=== PATIENT | male | born 1955 | race Caucasian/White ===

== ENCOUNTER → 2018-10-15 07:58 | Outpatient (CLI) | payer MEDICARE, OTHER, SELFPAY ==
[2018-10-15 08:26] LABS: Alanine Aminotransferase 27 IU/L (21-72); Albumin 4.7 g/dL (3.5-5.0); Albumin Globulin Ratio 1.7 (1.0-2.8); Alkaline Phosphatase 58 U/L (38-126); Aspartate Aminotransferase 18 IU/L (17-59); BUN Creatinine Ratio 26.7 (6-22); Bilirubin Total 0.3 mg/dL (0.2-1.3); Blood Urea Nitrogen 24 mg/dL (9-20); Carbon Dioxide 27 mmol/L (22-32); Chloride 104 mmol/L (98-107); Estimated Glomerular Filt Rate > 60.0 mL/min (>60); Globulin 2.7 g/dL (1.7-4.1); Glucose 104 mg/dL (80-110); HEMOLYSIS 20 (0-50); Potassium 4.9 mmol/L (3.4-5.1); Sodium 140 mmol/L (137-145); Total Protein 7.4 g/dL (6.3-8.2)
== END ==
PROVIDERS: Visit Provider Specialist/Technologist Athletic Trainer
DX: M12.9 Arthropathy, unspecified (principal); R70.0 Elevated erythrocyte sedimentation rate
CPT/HCPCS: 36415; 80053

== ENCOUNTER → 2018-10-17 09:19 | Outpatient (CLI) | payer MEDICARE, OTHER, SELFPAY ==
--- NOTE | 2018-10-17 | DI.MRI.S_ITS ---
PROCEDURE: MR KNEE LT WO/W CON INDICATIONS: ARTHROPATHY TECHNIQUE: Noncontrast sagittal PD fast spin echo and T2 fast spin echo with fat saturation, sagittal 3-D FLASH with fat saturation; coronal T1 spin echo and PD fast spin echo with fat saturation, and axial T1 spin echo and PD fast spin echo with fat saturation through the knee. Post-contrast axial, coronal, and sagittal T1 spin echo with fat saturation through the knee. COMPARISON: None. FINDINGS: Image quality: Excellent. Menisci: The medial and lateral menisci demonstrate normal morphology and internal signal. The meniscal root ligaments appear intact. Cruciate ligaments: The anterior and posterior cruciate ligaments appear intact. Medial structures: The medial collateral ligament appears intact. The posterior oblique ligament, semimembranosus tendon insertions, and oblique popliteal liagment, and meniscocapsular junction appear intact. Visualized portions of the pes anserinus tendons appear normal. No abnormal bursal fluid. Lateral structures: The lateral collateral ligament, long and short heads of the biceps femoris tendon appear intact. The popliteus tendon appears normal; the popliteofibular ligament appears intact. The posterosuperior and anteroinferior popliteomeniscal fascicles appear intact. The arcuate and fabellofibular ligaments appear intact, around the lateral inferior geniculate artery. Iliotibial band appears normal. Anterior structures: The quadriceps and patellar tendons appear intact. Patellar alignment is normal. No femoral trochlear dysplasia or ventral trochlear prominence. No edema in the infrapatellar fat pad. Bones and cartilage: No suspicious osseous enhancement. No bone marrow contusions or fractures. The cartilage of the medial and lateral femorotibial compartments appears only mildly diminished in thickness, but at the patellofemoral compartment there is moderate thinning especially at the apex of the trochlear groove with chondromalacia causing focal edema involving the subchondral marrow space of both the patella and trochlear groove component of the distal femur.. Joint space: There is physiologic knee joint fluid. No Ibrahim's cyst. Normal appearing synovial plicae are incidentally noted. No suspicious soft tissue enhancement. IMPRESSION: A ligamentous injury is not found, no recent trauma is suspected. There is chondromalacia with reactive edema involving the subchondral medullary space of the posterior patella and the anterior border of the femoral trochlear groove. An osteochondral loose body is not seen. Dictated by: Dick Morejon M.D. on 10/17/2018 at 13:21 Approved by: Dick Morejon M.D. on 10/17/2018 at 13:37
== END ==
PROVIDERS: PCP Family Medicine; Visit Provider Specialist/Technologist Athletic Trainer
DX: M17.12 Unilateral primary osteoarthritis, left knee (principal); M94.262 Chondromalacia, left knee
CPT/HCPCS: 73723; A9579

== ENCOUNTER → 2019-08-02 08:22 | Outpatient (CLI) | payer MEDICARE, OTHER, SELFPAY ==
--- NOTE | 2019-08-02 08:25 | DI.RAD.S_ITS ---
PROCEDURE: XR THORACIC SPINE 3V INDICATIONS: Acute exacerbation of chronic thoracic pain TECHNIQUE: 3 views of the thoracic spine were acquired. COMPARISON: None. FINDINGS: Bones: No fractures or dislocations. No suspicious bony lesions. 11 pairs of ribs are noted, and appear intact where visualized. Moderate multilevel degenerative disc disease. Soft tissues: No paravertebral stripe thickening. IMPRESSION: 1. Moderate multilevel degenerative disc disease. 2. No fracture. No acute osseous lesion. If symptoms and/or clinical suspicion for pathology persists, evaluation with MRI may be helpful for further assessment. Dictated by: Emily Valdivia MD, PhD on 08/02/2019 at 8:04 Approved by: Emily Valdivia MD, PhD on 08/02/2019 at 8:05
== END ==
PROVIDERS: PCP Family Medicine; Visit Provider Physical Medicine & Rehabilitation
DX: M47.24 Other spondylosis with radiculopathy, thoracic region (principal); M51.34 Other intervertebral disc degeneration, thoracic region; G89.29 Other chronic pain
CPT/HCPCS: 72072; 99214

== ENCOUNTER 2021-11-28 15:52 | Emergency (ER) | payer MEDICARE, OTHER, SELFPAY ==
[2021-11-28 16:08] VITALS: BP 141/87; PULSE 70; RESP 18; TEMP 36.9; O2SAT 95; BMI 32.5
--- NOTE | 2021-11-28 16:13 | ED_ITS ---
HPI - Extremity Injury (Lower) <Leyla Lewis DO - Last Filed: 11/29/21 07:23> General Chief Complaint: Extremity Injury, Lower Stated Complaint: Lt. hip pain Time Seen by Provider: 11/28/21 16:05 History of Present Illness HPI Narrative: Patient is a 66-year-old male insert hypertension who presents with right groin pain. He states that he was moving heavy furniture yesterday said his recliner and today has extreme pain in his groin. It is still nonverbal he cannot walk. He did not fall or have any other injury. He has no numbness tingling or weakness down his leg. He denies any abdominal pain nausea or vomiting. He denies any testicular swelling, painful or frequent urination Related Data Home Medications Medication Instructions Recorded Confirmed acetaminophen 500 mg tablet 1,000 mg PO DAILY PRN tab 08/02/19 09/09/19 (Tylenol Extra Strength) ibuprofen [Advil] 2 each PO BID PRN 08/02/19 09/09/19 multivitamin 1 tab PO DAILY 08/02/19 09/09/19 Previous Rx's Medication Instructions Recorded celecoxib 200 mg capsule (Celebrex) 200 mg PO DAILY #30 cap 08/02/19 diclofenac sodium 1 % topical gel 2 g TOP QID #100 gram MDD 8 gm 09/09/19 lidocaine 5 % topical ointment 1 applic TOP BID-TID PRN #35.44 09/09/19 gram MDD three applications hydrocodone 5 mg-acetaminophen 325 1 tab PO Q6H PRN #7 tab 11/28/21 mg tablet Allergies Allergy/AdvReac Type Severity Reaction Status Date / Time No Known Drug Allergies Allergy Verified 11/28/21 16:14 Review of Systems <DO Tonya Feng Last Filed: 11/29/21 07:23> Review of Systems Narrative: GENERAL: Denies chills, fatigue, malaise, fever, sweats, travel HEENT: Denies sinus pain, ear pain, sore throat, difficulty swallowing, neck pain RESPIRATORY: Denies dyspnea, cough, wheezing, hemoptysis, sputum. CARDIOVASCULAR: Denies chest pain, palpitations, orthopnea, edema GASTROINTESTINAL: Denies nausea, vomiting, abdominal pain, diarrhea, constipation, melena. : Denies dysuria, frequency, incontinence, hematuria, urinary retention, flank pain. MUSCULOSKELETAL: Denies weakness, joint pain, or bony pain SKIN: No rash, no erythema, no pruritus NEUROLOGIC: Denies weakness, dizziness, headache, numbness, change in speech, confusion PSYCHIATRIC: No concerning psychosocial issues. 12 point review of systems is negative except for those stated above and HPI Patient History <Leyla Lewis DO - Last Filed: 11/29/21 07:23> Medical History (Updated 11/28/21 @ 18:55 by Paul Chicas DO) Cervical spondylosis with radiculopathy DISH (diffuse idiopathic skeletal hyperostosis) Thoracic spondylosis with radiculopathy Social History Smoking Status: Never smoker Exam <Leyla Lewis DO - Last Filed: 11/29/21 07:23> Initial Vital Signs Initial Vital Signs: Vital Signs Temperature 98.4 F 11/28/21 16:08 Pulse Rate 70 11/28/21 16:08 Respiratory Rate 18 11/28/21 16:08 Blood Pressure 141/87 H 11/28/21 16:08 Pulse Oximetry 95 11/28/21 16:08 GENERAL: Alert 66-year-old male appears in and in no acute distress. HEENT: Head atraumatic,EOMI, pupils reactive, face symmetric, moist mucous membranes CARDIOVASCULAR: Regular rate and rhythm without murmurs, rubs or gallops. RESPIRATORY: Breath sounds equal bilaterally, no wheezes rales or rhonchi. ABDOMEN: Soft, nontender. Normoactive bowel sounds all 4 quadrants. No guarding or rebound. :Nurse Sharita reason for exam, mild swelling in right inguinal area, no significant testicular swelling EXTREMITIES: Normal range of motion, no clubbing or edema. Neurovascularly intact NEUROLOGICAL: Alert and oriented x4 SKIN: Warm, dry, no laceration, no petechiae, no rashes or lesions. <DO Tonya Vanessa Last Filed: 11/28/21 18:57> Initial Vital Signs Initial Vital Signs: Vital Signs Temperature 98.4 F 11/28/21 16:08 Pulse Rate 70 11/28/21 16:08 Respiratory Rate 18 11/28/21 16:08 Blood Pressure 141/87 H 11/28/21 16:08 Pulse Oximetry 95 11/28/21 16:08 Course <DO Tonya Feng Last Filed: 11/29/21 07:23> Orders Ordered: Discontinued Medications Hydrocodone Bitart/Acetaminophen (Hydrocodone/Acet 5/325 Prepack) 1 bottle MISC SEEINSTR ONE Stop: 11/28/21 18:52 Last Admin: 11/28/21 19:02 Dose: 1 bottle Documented by: LUCILLE Morphine Sulfate (Morphine 4 Mg/Ml Inj) 4 mg IM NOW ONE Stop: 11/28/21 16:14 Last Admin: 11/28/21 16:20 Dose: 4 mg Documented by: RAMIROOR Morphine Sulfate (Morphine 2 Mg/Ml Inj) 2 mg IV NOW ONE Stop: 11/28/21 16:47 Last Admin: 11/28/21 16:57 Dose: 2 mg Documented by: RAMIROOR Ondansetron HCl (Ondansetron 4 Mg/2 Ml Inj) 4 mg IV NOW ONE Stop: 11/28/21 18:05 Last Admin: 11/28/21 18:07 Dose: 4 mg Documented by: LUCILLE Ondansetron HCl (Ondansetron 4 Mg Odt Prepack) 1 bottle MISC SEEINSTR ONE Stop: 11/28/21 18:52 Last Admin: 11/28/21 19:02 Dose: 1 bottle Documented by: LUCILLE Vital Signs Vital signs: Vital Signs - 8 hr 11/28/21 16:08 Temperature 98.4 F Pulse Rate 70 Respiratory Rate 18 Blood Pressure 141/87 H Pulse Oximetry 95 <Paul Chicas DO - Last Filed: 11/28/21 18:57> Orders Ordered: Discontinued Medications Hydrocodone Bitart/Acetaminophen (Hydrocodone/Acet 5/325 Prepack) 1 bottle MISC SEEINSTR ONE Stop: 11/28/21 18:52 Last Admin: 11/28/21 19:02 Dose: 1 bottle Documented by: LUCILLE Morphine Sulfate (Morphine 4 Mg/Ml Inj) 4 mg IM NOW ONE Stop: 11/28/21 16:14 Last Admin: 11/28/21 16:20 Dose: 4 mg Documented by: RAMIROOR Morphine Sulfate (Morphine 2 Mg/Ml Inj) 2 mg IV NOW ONE Stop: 11/28/21 16:47 Last Admin: 11/28/21 16:57 Dose: 2 mg Documented by: LUCILLE Ondansetron HCl (Ondansetron 4 Mg/2 Ml Inj) 4 mg IV NOW ONE Stop: 11/28/21 18:05 Last Admin: 11/28/21 18:07 Dose: 4 mg Documented by: LUCILLE Ondansetron HCl (Ondansetron 4 Mg Odt Prepack) 1 bottle MISC SEEINSTR ONE Stop: 11/28/21 18:52 Last Admin: 11/28/21 19:02 Dose: 1 bottle Documented by: LUCILLE Vital Signs Vital signs: Vital Signs - 8 hr 11/28/21 16:08 Temperature 98.4 F Pulse Rate 70 Respiratory Rate 18 Blood Pressure 141/87 H Pulse Oximetry 95 MDM - Extremity Injury (Lower) <Leyla Lewis, - Last Filed: 11/29/21 07:23> Lab Data Result diagrams: 11/28/21 16:52 11/28/21 16:52 Labs: Lab Results 11/28/21 11/28/21 Range/Units 16:52 16:52 WBC 7.2 (4.5-11.0) X10^3/uL RBC 4.97 (4.5-5.9) X10^6/uL Hgb 15.2 (13.5-17.5) g/dL Hct 44.4 (41-53) % MCV 89.4 (80-100) fL MCH 30.6 (26-34) PG MCHC 34.2 (30-36) % RDW 13.2 (11.6-14.8) % Plt Count 176 (150-400) X10^3/uL Neut % (Auto) 64.0 (50-75) % Lymph % (Auto) 23.1 L (25-40) % [place] % (Auto) 9.7 (3-14) % Eos % (Auto) 1.3 L (2-4) % Baso % (Auto) 1.9 (0-2) % Neut # (Auto) 4600 (2023-6613) /uL Lymph # (Auto) 1700 (2737-2235) /uL [place] # (Auto) 700 (0-900) /uL Eos # (Auto) 100 (0-450) /uL Baso # (Auto) 100 (0-100) /uL Sodium 139 (137-145) mmol/L Potassium 3.9 (3.4-5.1) mmol/L Chloride 108 H (98-107) mmol/L Carbon Dioxide 25 (22-32) mmol/L BUN 27 H (9-20) mg/dL Creatinine 0.98 (0.66-1.25) mg/dL Estimated GFR > 60.0 (>60) mL/min BUN/Creatinine Ratio 27.6 H (6-22) Glucose 124 H (80-110) mg/dL Calcium 9.2 (8.4-10.2) mg/dL Total Bilirubin 0.4 (0.2-1.3) mg/dL AST 19 (17-59) IU/L ALT 20 (<50) IU/L Alkaline Phosphatase 59 (38-126) U/L Total Protein 6.8 (6.3-8.2) g/dL Albumin 4.3 (3.5-5.0) g/dL Globulin 2.5 (1.7-4.1) g/dL Albumin/Globulin Ratio 1.7 (1.0-2.8) MDM Narrative Medical decision making narrative: Patient having your right inguinal pain. Minimal swelling history suggestive of inguinal hernia. Patient is given morphine pain medication I have palpated it attempted to reduce. Initially patient did have some improvement however pain started to return. At that time blood work and CT. CT pending patient signed out to Dr. Juan Francisco chicas; received turned over from Dr. Lewis. CT scan of the abdomen and pelvis shows a left-sided inguinal hernia without signs of incarceration or strangulation however the patient's pain is on his right hip. He does feel somewhat better. I have a very high suspicion that his symptoms today are musculoskeletal in origin. I did discuss this with the patient. We did discuss the CT scan findings. He stated that he knew about his left-sided inguinal hernia. We discussed treatments that he could try at home for his discomfort. Discussed return precautions and follow-up instructions. He expressed understanding and agreement. <Paul Chicas, DO - Last Filed: 11/28/21 18:57> Lab Data Labs: Lab Results 11/28/21 11/28/21 Range/Units 16:52 16:52 WBC 7.2 (4.5-11.0) X10^3/uL RBC 4.97 (4.5-5.9) X10^6/uL Hgb 15.2 (13.5-17.5) g/dL Hct 44.4 (41-53) % MCV 89.4 (80-100) fL MCH 30.6 (26-34) PG MCHC 34.2 (30-36) % RDW 13.2 (11.6-14.8) % Plt Count 176 (150-400) X10^3/uL Neut % (Auto) 64.0 (50-75) % Lymph % (Auto) 23.1 L (25-40) % [place] % (Auto) 9.7 (3-14) % Eos % (Auto) 1.3 L (2-4) % Baso % (Auto) 1.9 (0-2) % Neut # (Auto) 4600 (7484-5445) /uL Lymph # (Auto) 1700 (8090-2443) /uL [place] # (Auto) 700 (0-900) /uL Eos # (Auto) 100 (0-450) /uL Baso # (Auto) 100 (0-100) /uL Sodium 139 (137-145) mmol/L Potassium 3.9 (3.4-5.1) mmol/L Chloride 108 H (98-107) mmol/L Carbon Dioxide 25 (22-32) mmol/L BUN 27 H (9-20) mg/dL Creatinine 0.98 (0.66-1.25) mg/dL Estimated GFR > 60.0 (>60) mL/min BUN/Creatinine Ratio 27.6 H (6-22) Glucose 124 H (80-110) mg/dL Calcium 9.2 (8.4-10.2) mg/dL Total Bilirubin 0.4 (0.2-1.3) mg/dL AST 19 (17-59) IU/L ALT 20 (<50) IU/L Alkaline Phosphatase 59 (38-126) U/L Total Protein 6.8 (6.3-8.2) g/dL Albumin 4.3 (3.5-5.0) g/dL Globulin 2.5 (1.7-4.1) g/dL Albumin/Globulin Ratio 1.7 (1.0-2.8) Imaging Data CT scan - abdomen/pelvis: Radiologist's Impression: [address] [address] [address] Scan Report Signed Patient: Portillo Belle MR#: [id number] : 1955 Acct:[id number] Age/Sex: 66 / M Date of Service: 11/28/21 Loc: ED Accession Number: [id number] ?? Procedure: CT abdomen pelvis w con Ordering Provider: Leyla Lewis D.O. PROCEDURE:? CT ABDOMEN PELVIS W CON ? INDICATIONS:? right groin pain probable hernia ? TECHNIQUE:? Helical axial CT of the abdomen and pelvis was obtained after intravenous contrast injection and reformatted in multiple planes.? Automated exposure control and/or adjustment of the dose parameters according to patient's size was utilized for radiation dose reduction. ? COMPARISON:? None. ? FINDINGS: ? Lower thorax: The lung bases are clear.? Heart size normal.? No hiatal hernia. ? Liver: The liver is diffusely decreased in attenuation without focal mass lesion. ? Biliary system:? No calcified cholelithiasis or pericholecystic inflammation. No intra or extrahepatic bile duct dilatation. ? Pancreas:? Unremarkable without mass or inflammation evident. ? Spleen:? Normal in size and density. ? Adrenals:? Normal morphology and density. ? Reproductive system:? Unremarkable as visualized. ? Urinary system:? Normal renal size and attenuation.? Left renal cortical cyst measures up to 4.3 cm No renal calculi, hydronephrosis, or solid mass present.? Urinary bladder unremarkable. ? Gastrointestinal system:? The bowel is unremarkable without evidence of bowel obstruction or inflammation. The stomach appears unremarkable. ? Appendix:? Normal appendix identified.? No evidence of appendicitis. ? Peritoneal spaces:? No mesenteric or retroperitoneal adenopathy.? No free air.? No free fluid.? ? Vasculature:? Aortic atherosclerotic vascular calcification noted without evidence of aneurysm. ? Abdominal wall:? Small left inguinal hernia contains fat without bowel in volvement.? No ventral hernia. ? Musculoskeletal:? Normal bone mineralization.? Degenerative disc disease and arthropathy noted in lower lumbar spine.? No acute fractures.? ? IMPRESSION: ? 1. Small left inguinal hernia contains fat without bowel involvement.? ? 2. Chronic findings include hepatic fatty infiltration, right renal cysts without hydronephrosis, degenerative disc disease ? ? ? Approved by: Rojelio Hatfield M.D. on 11/28/2021 at 17:11? MDM Narrative Medical decision making narrative: Dr chicas; received turned over from Dr. Lewis. CT scan of the abdomen and pelvis shows a left-sided inguinal hernia without signs of incarceration or strangulation however the patient's pain is on his right hip. He does feel somewhat better. I have a very high suspicion that his symptoms today are musculoskeletal in origin. I did discuss this with the patient. We did discuss the CT scan findings. He stated that he knew about his left-sided inguinal hernia. We discussed treatments that he could try at home for his discomfort. Discussed return precautions and follow-up instructions. He expressed understanding and agreement. Discharge Plan Departure Patient Disposition: Home Clinical Impression: Acute hip pain, Hernia, inguinal, left Instructions: DI for Hip Pain Activity Restrictions/Additional Instructions: The CT scan did not show any signs of acute issues around your right hip. Like we discussed I do feel that this is musculoskeletal. You can walk as tolerated. Contact your primary doctor for follow-up. Return to the emergency department for any new or worsening symptoms. Prescriptions: New hydrocodone-acetaminophen 5-325 mg tablet 1 tab PO Q6H PRN (Reason: pain) Qty: 7 0RF No Action multivitamin Tablet 1 tab PO DAILY 0RF ibuprofen 2 each PO BID PRN0RF Hold Instructions: Home Medication placed on hold at Doctor's office acetaminophen [Tylenol Extra Strength] 500 mg tablet 1,000 mg PO DAILY PRN0RF celecoxib [Celebrex] 200 mg capsule 200 mg PO DAILY Qty: 30 2RF diclofenac sodium 1 % gel 2 g TOP QID MDD 8 gm Qty: 100 5RF Rx Instructions: apply to thoaracic back lidocaine 5 % ointment 1 applic TOP BID-TID MDD three applications PRN (Reason: lumbar pain) Qty: 35.44 0RF Referrals: Omid Nguyen MD [Primary Care Provider] -
[2021-11-28] MEDS: MORPHINE 4 MG/ML INJ IM (16:20)
--- NOTE | 2021-11-28 16:46 | DI.CT.S_ITS ---
PROCEDURE: CT ABDOMEN PELVIS W CON INDICATIONS: right groin pain probable hernia TECHNIQUE: Helical axial CT of the abdomen and pelvis was obtained after intravenous contrast injection and reformatted in multiple planes. Automated exposure control and/or adjustment of the dose parameters according to patient's size was utilized for radiation dose reduction. COMPARISON: None. FINDINGS: Lower thorax: The lung bases are clear. Heart size normal. No hiatal hernia. Liver: The liver is diffusely decreased in attenuation without focal mass lesion. Biliary system: No calcified cholelithiasis or pericholecystic inflammation. No intra or extrahepatic bile duct dilatation. Pancreas: Unremarkable without mass or inflammation evident. Spleen: Normal in size and density. Adrenals: Normal morphology and density. Reproductive system: Unremarkable as visualized. Urinary system: Normal renal size and attenuation. Left renal cortical cyst measures up to 4.3 cm No renal calculi, hydronephrosis, or solid mass present. Urinary bladder unremarkable. Gastrointestinal system: The bowel is unremarkable without evidence of bowel obstruction or inflammation. The stomach appears unremarkable. Appendix: Normal appendix identified. No evidence of appendicitis. Peritoneal spaces: No mesenteric or retroperitoneal adenopathy. No free air. No free fluid. Vasculature: Aortic atherosclerotic vascular calcification noted without evidence of aneurysm. Abdominal wall: Small left inguinal hernia contains fat without bowel involvement. No ventral hernia. Musculoskeletal: Normal bone mineralization. Degenerative disc disease and arthropathy noted in lower lumbar spine. No acute fractures. IMPRESSION: 1. Small left inguinal hernia contains fat without bowel involvement. 2. Chronic findings include hepatic fatty infiltration, right renal cysts without hydronephrosis, degenerative disc disease Approved by: Rojelio Hatfield M.D. on 11/28/2021 at 17:11
[2021-11-28] MEDS: MORPHINE 2 MG/ML INJ IV (16:57)
[2021-11-28 17:00] LABS: Add Manual Diff / Slide Review NO; Basophils Absolute Auto 100 /uL (0-100); Basophils Percent Auto 1.9 % (0-2); Eosinophils Absolute Auto 100 /uL (0-450); Eosinophils Percent Auto 1.3 % (2-4); Hematocrit 44.4 % (41-53); Hemoglobin 15.2 g/dL (13.5-17.5); Lymphocytes Absolute Auto 1700 /uL (1100-4500); Lymphocytes Percent Auto 23.1 % (25-40); Mean Corpuscular HGB Conc 34.2 % (30-36); Mean Corpuscular Hemoglobin 30.6 PG (26-34); Mean Corpuscular Volume 89.4 fL (80-100); Monocytes Absolute Auto 700 /uL (0-900); Monocytes Percent Auto 9.7 % (3-14); Neutrophils Absolute Auto 4600 /uL (1500-7000); Platelet Count 176 X10^3/uL (150-400); Red Blood Cell Count 4.97 X10^6/uL (4.5-5.9); Red Cell Distribution Width 13.2 % (11.6-14.8); White Blood Cell Count 7.2 X10^3/uL (4.5-11.0)
[2021-11-28 17:11] LABS: Alanine Aminotransferase 20 IU/L (<50); Albumin 4.3 g/dL (3.5-5.0); Albumin Globulin Ratio 1.7 (1.0-2.8); Alkaline Phosphatase 59 U/L (38-126); Aspartate Aminotransferase 19 IU/L (17-59); BUN Creatinine Ratio 27.6 (6-22); Bilirubin Total 0.4 mg/dL (0.2-1.3); Blood Urea Nitrogen 27 mg/dL (9-20); Calcium 9.2 mg/dL (8.4-10.2); Carbon Dioxide 25 mmol/L (22-32); Chloride 108 mmol/L (98-107); Estimated Glomerular Filt Rate > 60.0 mL/min (>60); Globulin 2.5 g/dL (1.7-4.1); Glucose 124 mg/dL (80-110); HEMOLYSIS 16 (0-50); Potassium 3.9 mmol/L (3.4-5.1); Sodium 139 mmol/L (137-145); Total Protein 6.8 g/dL (6.3-8.2)
[2021-11-28 17:52] VITALS: PULSE 70; O2SAT 96
[2021-11-28 18:00] VITALS: BP 161/106; PULSE 70; O2SAT 95
[2021-11-28] MEDS: ONDANSETRON 4 MG/2 ML INJ IV (18:07)
[2021-11-28 18:30] VITALS: BP 176/91; PULSE 69; O2SAT 92
[2021-11-28 19:00] VITALS: BP 162/105; PULSE 74; O2SAT 91
[2021-11-28] MEDS: ONDANSETRON 4 MG ODT PREPACK 1 BOTTLE MISC (19:02)
[2021-11-28] MEDS: HYDROCODONE/ACET 5/325 PREPACK 1 BOTTLE MISC (19:02)
== END 2021-11-28 19:14 | disposition home or self-care (01) ==
PROVIDERS: Emergency Medicine; Emergency Provider Emergency Medicine; PCP Family Medicine
DX: K40.90 Unilateral inguinal hernia, without obstruction or gangrene, not specified as recurrent (principal); M25.551 Pain in right hip
CPT/HCPCS: 36415; 74177; 80053; 85025; 96372; 96374; 96375; 99284; J2270; J2405; Q9967

== ENCOUNTER 2022-01-10 09:29 | Day surgery (SDC) | payer MEDICARE, OTHER, SELFPAY ==
--- NOTE | 2022-01-10 | PATH_ITS ---
[facility] Accession Number: [id number] No. of containers..01 Tissue . 01 Material submitted: . cecum - CECUM . 02 Diagnosis: Cecum: Tubular adenoma. MRV 01/12/2022 1501 Local . 02 Electronically signed: . Ailyn Pritchard MD, Pathologist NPI- [id number] . 01 Gross description: . CECUM: Received in formalin is 1 fragment(s) of shay, soft tissue measuring 0.6 x 0.4 x 0.4 cm submitted entirely in 1 cassette(s) /ZENOBIA 01/11/2022 2244 Local . 02 Pathologist provided ICD-10: K63.5, Z86.010 . 02 CPT . 585772 Specimen Comment: A courtesy copy of this report has been sent to [phone], [phone] Specimen Comment: 2055 Performed at: 01 [facility] [address] [facility], [place], [place] [id number] MD Michael Ward MD Phone: [phone] Performed at: 02 [facility] [address] [place], [place] [id number] MD Sallie Haji MD Phone: [phone]
[2022-01-10 10:07] VITALS: BP 144/96; PULSE 78; RESP 16; TEMP 36.4; O2SAT 97; BMI 32.5
[2022-01-10 10:30] LABS: COVID19 -Nasal RAPID Negative (Negative)
[2022-01-10] MEDS: SODIUM CHLORIDE 0.9% 1,000 ML 100 ML IV (10:47)
--- NOTE | 2022-01-10 10:59 | PM.HP.1 ---
History of Present Illness History of Present Illness Date Patient Seen: 01/10/22 Time Patient Seen: 11:00 Chief complaint: SDC Narrative: Personal history of colon polyps Patient History Medical History Cervical spondylosis with radiculopathy DISH (diffuse idiopathic skeletal hyperostosis) Thoracic spondylosis with radiculopathy Family & Social History Social History: household members spouse Tobacco & Substance use: Tobacco type cigarettes Smoking Status Former smoker alcohol intake frequency a few times a month Substance Use Type marijuana Meds Home Medications and Allergies Home Medications Medication Instructions Recorded Confirmed Type acetaminophen 500 mg tablet 1,000 mg PO DAILY PRN tab 08/02/19 01/10/22 History (Tylenol Extra Strength) ibuprofen [Advil] 2 each PO BID PRN 08/02/19 01/10/22 History multivitamin 1 tab PO DAILY 08/02/19 01/10/22 History diclofenac sodium 1 % topical gel 2 g TOP QID #100 gram MDD 8 gm 09/09/19 01/10/22 Rx lidocaine 5 % topical ointment 1 applic TOP BID-TID PRN #35.44 09/09/19 01/10/22 Rx gram MDD three applications atorvastatin 10 mg tablet 10 mg PO DAILY 01/10/22 01/10/22 History Allergies Allergy/AdvReac Type Severity Reaction Status Date / Time No Known Drug Allergies Allergy Verified 01/10/22 10:02 Review of Systems Review of Systems ROS: Yes All systems reviewed with the patient and are negative except as otherwise documented Exam Vital Signs (past 8 hours): - 01/10/22 10:07 Temperature 97.5 F L Pulse Rate 78 Respiratory Rate 16 Blood Pressure 144/96 H Pulse Oximetry 97 Oxygen Delivery Method Room Air Const General: cooperative and comfortable Orientation: alert HENMT Head: normocephalic Ears: external ears normal Nose: external nose normal Face and sinus: normal facial exam Mouth: oral mucosae normal Eyes General: appearance normal, both eyes and all related structures Neck Neck: normal visual inspection Chest Chest: normal inspection of the chest Resp Effort & Inspection: normal respiratory effort Cardio Rate: regular rate GI Inspection: normal to inspection Skin General: no rashes or lesions noted and No jaundice Neuro General: patient alert and moves all extremities Cognition: normal cognition Speech: speech normal Extrem General: no pedal edema Psych Appearance: grossly normal Objective Labs Labs: Laboratory Results - last 24 hr 01/10/22 10:00 SARS-CoV-2 (PCR) Negative Assessment & Plan Assessment & Plan narrative: 66-year-old male a personal history of colon polyps here for surveillance. Colonoscopy is planned for today. Time Spent With Patient Critical Care time: I spent a total of [] minutes of critical care time on this patient's care today; this time is exclusive of procedural time.
--- NOTE | 2022-01-10 11:01 | PM.PREOP ---
Pre-operative Note COVID-19 COVID-19 status: Negative Result date/Date tested (Pos, Neg/Pending): 01/10/22 Criteria for continued procedure: Possibility delay results in more complex future surgery or treatment Interval Note History & Physical reviewed/Exam performed by Physician: Yes Changes to H&P: No ASA Class (for procedural sedation): II
--- NOTE | 2022-01-10 11:51 | PM.OP.COLON ---
Operative Date/Time/Diagnoses Date of procedure: 01/10/22 Time of procedure: 11:51 Pre-op diagnosis: Personal history of colon polyps Post-op diagnosis: same Procedure & Clinicians Study performed: Colonoscopy with hot snare polypectomy Same procedure as scheduled: Yes Indications: Personal history of colon polyps Surgeon: Paulo Verdin Procedure Notes SCOAP/Timeout: Done Procedure in detail: After the risks and benefits were explained, written and verbal informed consent was obtained. The patient was brought into the procedure room and placed into the left lateral decubitus position. Please see nurse health information technician notes for sedation details. Digital rectal examination was accomplished. The scope was introduced into the patient and advanced under direct visualization to the cecum as identified by the appendiceal orifice and ileocecal valve. The scope was slowly withdrawn to carefully examine the mucosa for any defects or lesions. Comprehensive imaging was accomplished throughout the rectum including the dentate line. The colon was decompressed, the scope was then removed from the patient who tolerated the procedure well. Adult colonoscope Bowel prep adequate Scope withdrawal time: 13 minutes Sedation minutes: 20 Complications: none Impression: Patient had extensive diverticulosis extending from the sigmoid all the way into the ascending colon. There was a sessile 8-9 mm polyp in the cecum removed with hot snare. Moderate internal hemorrhoids were noted grade 1. No additional pathology appreciated throughout. Endoscopic diagnosis 1. Diverticulosis 2. Colon polyp 3. Grade 1 hemorrhoids Post-procedure Plan for aftercare: 1. Await histopathology 2. Repeat colonoscopy 7 years. Disposition: PACU
[2022-01-10 11:55] VITALS: BP 146/87; PULSE 70; RESP 10; TEMP 36.7; O2SAT 96
[2022-01-10 12:00] VITALS: BP 121/78; PULSE 67; RESP 13; O2SAT 96
[2022-01-10 12:05] VITALS: BP 119/65; BP 122/78; PULSE 64; PULSE 66; RESP 10; RESP 13; O2SAT 97; O2SAT 98
[2022-01-10 12:15] VITALS: BP 125/81; PULSE 66; RESP 13; O2SAT 97
== END 2022-01-10 12:30 | disposition home or self-care (01) ==
PROVIDERS: PCP Internal Medicine; Referring Provider Internal Medicine Gastroenterology; Visit Provider Internal Medicine Gastroenterology
PROC: 0DJD8ZZ Inspection of Lower Intestinal Tract, Via Natural or Artificial Opening Endoscopic (ICD-10-PCS; CPT 45378; principal; 2022-01-10 11:00)
DX: Z12.11 Encounter for screening for malignant neoplasm of colon (principal); Z86.010 Personal history of colon polyps; Z20.822 Contact with and (suspected) exposure to COVID-19; K57.30 Diverticulosis of large intestine without perforation or abscess without bleeding; K64.0 First degree hemorrhoids; D12.0 Benign neoplasm of cecum
CPT/HCPCS: 45385; 87635; C9803; J2704

== ENCOUNTER → 2022-02-02 13:32 | Outpatient (CLI) | payer MEDICARE, OTHER, SELFPAY ==
--- NOTE | 2022-02-02 | DI.RAD.S_ITS ---
PROCEDURE: XR HIP W PEL IF DONE RT 2V INDICATIONS: Radiculopathy, lumbar region/Pain in right hip TECHNIQUE: AP pelvis with lateral view(s) of the right hip(s). COMPARISON: None. FINDINGS: Bones: No fractures or dislocations. Pelvic ring appears intact. No suspicious bony lesions. Mild osseous hypertrophy noted in the right hip compatible mild osteoarthritis. Soft tissues: The visualized bowel gas pattern is normal. No suspicious soft tissue calcifications. IMPRESSION: Mild right hip osteoarthritis. Dictated by: Emily Valdivia MD, PhD on 02/02/2022 at 15:38 Approved by: Emily Valdivia MD, PhD on 02/02/2022 at 15:38
--- NOTE | 2022-02-02 | DI.RAD.S_ITS ---
PROCEDURE: XR LUMBAR SPINE MIN 4V INDICATIONS: Radiculopathy, lumbar region/Pain in right hip TECHNIQUE: 5 views of the lumbar spine were acquired, including bilateral oblique views. COMPARISON: [facility], CR, XR LUMBAR SPINE WITH OBLIQUES, 08/27/2018, 15:53. FINDINGS: Bones: 5 nonrib-bearing vertebrae are present. There is normal bony alignment. No vertebral body compression fractures. No suspicious bony lesions. Mild degenerative disc changes noted throughout the lumbar spine. Mild facet arthropathy noted throughout the lumbar spine. Soft tissues: Overlying bowel gas pattern is normal. No suspicious soft tissue calcifications. Oblique images: No pars defects. IMPRESSION: 1. Multilevel degenerative disc disease. 2. Multilevel facet arthropathy. 3. No fracture. No acute osseous lesion. If symptoms and/or clinical suspicion for pathology persists, evaluation with MRI should be considered for further assessment. Dictated by: Emily Valdivia MD, PhD on 02/02/2022 at 15:45 Approved by: Emily Valdivia MD, PhD on 02/02/2022 at 15:46
== END ==
PROVIDERS: PCP Internal Medicine; Referring Provider Family Medicine; Visit Provider Family Medicine
DX: M51.16 Intervertebral disc disorders with radiculopathy, lumbar region (principal); M47.26 Other spondylosis with radiculopathy, lumbar region; M25.551 Pain in right hip; M16.11 Unilateral primary osteoarthritis, right hip
CPT/HCPCS: 72110; 73502

== ENCOUNTER → 2022-02-26 08:21 | Outpatient (CLI) | payer MEDICARE, OTHER, SELFPAY | PROVIDERS: PCP Internal Medicine; Referring Provider Internal Medicine; Visit Provider Internal Medicine | DX: M25.551 Pain in right hip (principal); Z53.20 Procedure and treatment not carried out because of patient's decision for unspecified reasons ==

== ENCOUNTER → 2022-03-06 12:23 | Outpatient (CLI) | payer MEDICARE, OTHER, SELFPAY ==
--- NOTE | 2022-03-06 12:29 | DI.MRI.S_ITS ---
PROCEDURE: MR HIP RT WO CON INDICATIONS: Pain in right hip TECHNIQUE: Noncontrast coronal T1 spin echo and STIR through the bony pelvis. Coronal and axial T2 fast spin echo with fat saturation, sagittal T1 spin echo, and oblique axial T2 fast spin echo with fat saturation through the hip. COMPARISON: [facility], CR, XR HIP W PEL IF DONE RT 2V, 02/02/2022, 13:29. FINDINGS: Image quality: Excellent. Bones and joints: There is moderate right and mild left periarticular osteophyte formation at the hip joints. There is moderate subchondral marrow edema within the right acetabulum. Bone marrow of the pelvic ring and proximal femurs demonstrates otherwise normal signal throughout. No intraosseous lesions or fractures. No avascular necrosis of the femoral heads. The visualized lower lumbar spine appears normally aligned. Small right greater than left hip joint effusions are present. Tendons and ligaments: The gluteus medius and minimus tendons appear intact, without associated muscle atrophy. There is mild T2 signal elevation at the femoral insertion site of the right gluteus minimus tendon. The nearby proximal iliotibial band also appears intact. The iliopsoas tendon appears intact, but there is a small amount of elevated T2 signal elevation within the lateral aspect of the iliopsoas musculotendinous junction at the femoral insertion site. There is a small right ileo psoas bursal fluid collection.The origin of the hamstring tendon is intact at the ischial tuberosity, as well as the associated sacrotuberous ligament. There is mild T2 signal elevation within the proximal hamstring tendon. The straight and reflected heads of the rectus femoris muscle origin appear intact, as well as the conjoint tendon. The ligamentum teres appears intact where visualized. Labrum and cartilage: Diffuse degenerative tearing of the right hip labrum is present. Cartilage surface of the femoral head appears of normal thickness. The alpha angle of the femur is within normal limits at less than 55 degrees. Soft tissues: Visualized muscles demonstrate normal bulk and internal signal. Quadratus femoris muscle demonstrates no internal edema to suggest ischiofemoral impingement. The proximal sciatic neurovascular bundle appears normal adjacent to the hamstring tendons. No free pelvic fluid. Bladder wall thickness is normal. Genitourinary structures and bowel loops appear normal where visualized. IMPRESSION: 1. Iliopsoas bursitis. 2. Right greater than left hip joint osteoarthritis with associated degenerative labral tearing. 3. Mild right ischiitis. 4. Insertional tendinitis of the right gluteus medius tendon. Dictated by: Marguerite Yun M.D. on 03/07/2022 at 8:54 Approved by: Marguerite Yun M.D. on 03/07/2022 at 9:05
== END ==
PROVIDERS: PCP Internal Medicine; Referring Provider Internal Medicine; Visit Provider Internal Medicine
DX: M16.11 Unilateral primary osteoarthritis, right hip (principal); M70.71 Other bursitis of hip, right hip; M76.01 Gluteal tendinitis, right hip; M25.551 Pain in right hip
CPT/HCPCS: 73721

== ENCOUNTER → 2022-03-08 14:40 | Outpatient (CLI) | payer MEDICARE, OTHER, SELFPAY ==
--- NOTE | 2022-03-08 14:43 | DI.US.S_ITS ---
PROCEDURE: US ABDOMEN LIMITED INDICATIONS: R lower quadrant pain/assess for femoral hernia TECHNIQUE: Real-time focused scanning was performed of the abdomen, with image documentation. COMPARISON: None. FINDINGS: Scanning is performed at the area of clinical concern within the right groin, including with Valsalva maneuver. Standing images were also performed. No findings of hernia can be seen. IMPRESSION: Negative ultrasound, without findings of a hernia at the area of clinical concern. Dictated by: Jorge Lawson M.D. on 03/08/2022 at 15:50 Approved by: Jorge Lawson M.D. on 03/08/2022 at 15:51
== END ==
PROVIDERS: PCP Internal Medicine; Referring Provider Internal Medicine; Visit Provider Internal Medicine
DX: R10.31 Right lower quadrant pain (principal)
CPT/HCPCS: 76705

== ENCOUNTER → 2022-06-21 13:43 | Outpatient (CLI) | payer MEDICARE, OTHER, SELFPAY ==
--- NOTE | 2022-06-21 | DI.US.S_ITS ---
PROCEDURE: US ABDOMEN LIMITED INDICATIONS: Right lower quadrant pain TECHNIQUE: Real-time focused scanning was performed of the abdomen, with image documentation. COMPARISON: [facility], CT, CT ABDOMEN PELVIS W CON, 11/28/2021, 17:33. [facility], US, US ABDOMEN LIMITED, 03/08/2022, 15:43. FINDINGS: No sonographic abnormality identified within the superficial soft tissues of the left upper quadrant of the abdomen corresponding to the lump identified by the patient. No right groin hernia visualized. Images obtained at rest and with Valsalva maneuver. IMPRESSION: 1. No sonographic abnormality identified within the superficial soft tissues of the left upper quadrant of the abdomen corresponding to the lump identified by the patient. 2. No right groin hernia visualized. 3. If clinical suspicion/patient's symptoms persist, other imaging modalities such as CT of the abdomen and pelvis might be helpful. Dictated by: Sacha Duncan M.D. on 06/21/2022 at 17:48 Approved by: Sacah Duncan M.D. on 06/21/2022 at 17:51
== END ==
PROVIDERS: PCP Internal Medicine; Referring Provider Internal Medicine; Visit Provider Internal Medicine
DX: R10.31 Right lower quadrant pain (principal); M79.9 Soft tissue disorder, unspecified
CPT/HCPCS: 76705

== ENCOUNTER → 2022-10-12 10:04 | Outpatient (CLI) | payer MEDICARE, OTHER, SELFPAY ==
[2022-10-12 11:16] LABS: Add Manual Diff / Slide Review NO; Basophils Absolute Auto 100 /uL (0-100); Basophils Percent Auto 1.2 % (0-2); Eosinophils Absolute Auto 100 /uL (0-450); Hematocrit 48.3 % (41-53); Hemoglobin 16.8 g/dL (13.5-17.5); Lymphocytes Absolute Auto 2300 /uL (1100-4500); Lymphocytes Percent Auto 36.7 % (25-40); Mean Corpuscular HGB Conc 34.7 % (30-36); Mean Corpuscular Hemoglobin 30.7 PG (26-34); Mean Corpuscular Volume 88.4 fL (80-100); Monocytes Absolute Auto 700 /uL (0-900); Neutrophils Absolute Auto 3100 /uL (1500-7000); Neutrophils Percent Auto 49.1 % (50-75); Platelet Count 170 X10^3/uL (150-400); Red Blood Cell Count 5.46 X10^6/uL (4.5-5.9); Red Cell Distribution Width 12.8 % (11.6-14.8); White Blood Cell Count 6.3 X10^3/uL (4.5-11.0)
[2022-10-12 11:23] LABS: Appearance Urine UA CLEAR; Bilirubin Urine UA NEGATIVE (NEGATIVE); Color Urine UA YELLOW; Glucose Urine UA NEGATIVE (Negative); Ketones Urine UA NEGATIVE (NEGATIVE); Leukocyte Esterase Urine UA NEGATIVE (NEGATIVE); Nitrite Urine UA NEGATIVE (Negative); Occult Blood Urine UA NEGATIVE (Negative); Protein Urine UA NEGATIVE (Negative); Specific Gravity Urine UA 1.025 (1.000-1.035); Urobilinogen Urine UA 0.2 E.U./dL (0.2)
[2022-10-12 11:33] LABS: Bacteria Urine None Seen; Culture Indicated Urine Cult Not Indicated; RBC Urine None Seen (0-5/HPF); Urine Comments Microscopic Normal; WBC Urine None Seen (0-5/HPF)
[2022-10-12 11:33] LABS: BUN Creatinine Ratio 29.5 (6-22); Blood Urea Nitrogen 28 mg/dL (9-20); Calcium 9.2 mg/dL (8.4-10.2); Carbon Dioxide 23 mmol/L (22-32); Chloride 104 mmol/L (98-107); Estimated Glomerular Filt Rate > 60 mL/min (>60); Glucose 109 mg/dL (80-110); HEMOLYSIS 17 (0-50); Potassium 4.4 mmol/L (3.4-5.1); Sodium 138 mmol/L (137-145)
[2022-10-12 11:35] LABS: Hemoglobin A1C% w Est Avg Glu 5.6 % (4.0-6.0)
== END ==
PROVIDERS: PCP Internal Medicine; Referring Provider Orthopaedic Surgery; Visit Provider Orthopaedic Surgery
DX: Z01.818 Encounter for other preprocedural examination (principal); R73.9 Hyperglycemia, unspecified; Z01.812 Encounter for preprocedural laboratory examination; N39.0 Urinary tract infection, site not specified
CPT/HCPCS: 36415; 80048; 81001; 83036; 85025; 93005

== ENCOUNTER 2022-11-19 12:15 | Observation (INO) | payer MEDICARE, OTHER, SELFPAY ==
[2022-11-09 08:42] VITALS: BMI 33.2
[2022-11-17] VITALS (10 sets, daily range): BP systolic 109–158; BP diastolic 61–91; PULSE 61–90; RESP 12–18; TEMP 35.3–37.2; O2SAT 97–99; BMI 33.2
--- NOTE | 2022-11-17 | DI.RAD.S_ITS ---
PROCEDURE: XR HIP W PEL IF DONE RT 2V INDICATIONS: INTRA-OP TECHNIQUE: 3 intraoperative view(s) of the hip acquired. COMPARISON: [facility], CR, XR HIP W PEL IF DONE RT 2V, 02/02/2022, 13:29. FINDINGS: Intraoperative images of the right hip arthroplasty. The prosthesis projects in the expected location. IMPRESSION: Intraoperative guidance provided. Dictated by: Saul Parra M.D. on 11/17/2022 at 16:47 Approved by: Saul Parra M.D. on 11/17/2022 at 16:47
--- NOTE | 2022-11-17 06:00 | DI.RAD.S_ITS ---
PROCEDURE: XR HIP W PEL IF DONE RT 2V INDICATIONS: prosthesis placement TECHNIQUE: AP pelvis and lateral view of the right hip acquired. COMPARISON: [facility], DELILAH, XR HIP W PEL IF DONE RT 2V, 11/17/2022, 16:36. FINDINGS: Bones: Patient is status post right hip arthroplasty, with hardware components in expected positions. The hip joint appears congruent. The visualized bony structures appear intact. Soft tissues: Overlying postoperative changes are noted. No suspicious soft tissue densities. IMPRESSION: Expected appearance post right hip arthroplasty. Dictated by: Elvia Liz M.D. on 11/17/2022 at 17:39 Approved by: Elvia Liz M.D. on 11/17/2022 at 17:40
[2022-11-17] MEDS: CELECOXIB 200 MG CAPSULE PO (12:47)
[2022-11-17] MEDS: VANCOMYCIN 1,000 MG/200 ML PIGGYBACK 200 MG IV (12:47)
[2022-11-17] MEDS: PREGABALIN 75 MG CAPSULE PO (12:47)
[2022-11-17] MEDS: ACETAMINOPHEN 325 MG TABLET 975 MG PO (12:47)
[2022-11-17 12:58] LABS: COVID19 -Nasal RAPID Negative (Negative)
--- NOTE | 2022-11-17 13:55 | P.OP_ITS ---
Operative Date/Time/Diagnoses Date of procedure: 11/17/22 Time of procedure: 14:00 Pre-op diagnosis: Severe right hip osteoarthritis Post-op diagnosis: same Procedure & Clinicians Procedure: Right total hip arthroplasty anterior approach Same procedure as scheduled: Yes Indications: The patient has had progressively worsening right hip pain with radiographic changes consistent with arthritis. Non-operative management has failed and the patient has requested total hip replacement. The risks, benefits and alternatives to surgery were discussed with the patient prior to proceeding. Risks discussed included, but were not limited to, failure to relieve pain, leg length discrepancy, dislocation, stiffness, infection, nerve damage, deep venous thrombosis, pulmonary embolism, stroke, coma, heart attack, permanent paralysis and , as well as the potential need for eventual revision of the prosthetic. Surgeon: Sadie Giles Ripsaw Operator: Timothy Banegas Anesthesia Type: General and Spinal Operative Notes Findings: Severe right hip osteoarthritis, adequate stability, good bone Closure Type: primary Specimen(s): none sent Prosthetic devices, grafts, tissues, transplants, or devices: Giles [employer]hew 56 mm R3, size 7 standard offset anthology, 36- 3 Oxinium, neutral poly liner,one 6.5 mm screw Estimated Blood Loss (mL): 250 Blood products transfused: none Procedure in detail: The patient was brought to the operating room. Patient was carefully positioned in the supine position. Time-out was performed and antibiotics were given. Anesthesia was induced. She was positioned in the on the table in order to allow hyperextension of the hip. The right lower extremity was prepped and draped in a standard sterile fashion. An anterior right hip incision was made 1 fingerbreadth lateral to the anterior superior iliac spine and extended distally towards the greater trochanter. Dissection was carried out through skin and subcutaneous tissues. Superficial hemostasis was achieved. The fascia over the tensor fascia donaldo was defined and incised with a knife. Two Allis clamps were used to grasp the fascia. Tensor fascia donaldo was retracted laterally. A gelpi retractor was placed. Dissection was carried out down along the neck. The circumflex vessels were carefully identified and cauterized with the Aqua Mantis. There was good visualization of the femoral neck. A Cobra was placed superior to the neck and the gluteus fibers were carefully stripped from that superior aspect of the capsule. A 2nd retractor was placed along the inferior aspect of the neck. The rectus insertion along the capsule was partially released. A 3rd retractor that was then gently placed over the rim of the acetabulum under the rectus. Capsule was carefully incised and released from the intertrochanteric l ine circumferentially superior to the mid sagittal line and inferiorly to the mid sagittal line until the lesser trochanter was palpable. A tag stitch was placed both in the superior and inferior limb of the capsular insertion. Along the acetabulum capsule was also released up to the mid sagittal 12:00 position. A portion of the labrum was resected. A saw was used to perform an osteotomy at the level of the intertrochanteric line and the junction of the superior femoral neck leaving approximately 1 finger breath of residual inferior neck above the lesser trochanter. A 2nd cut was made along the femoral neck at the base of the head and a napkin ring of neck was removed. Corkscrew was placed in the femoral head and the head was removed without difficulty. Retractors were then repositioned around the acetabulum. Residual labrum was resected and additional osteophytes were removed. A reamer that was 4 mm below the templated size was placed by hand in the acetabulum and it was reamed to centralize the acetabulum. It was then reamed up to 2 under the templated size and fluoroscopy was brought in to confirm the position of the reaming and depth of reaming. I reamed 1 under the anticipated size. A trial cup was placed and noted that it was appropriately sized and fluoroscopy confirmed position and depth. The component was open and inserted without difficulty fluoroscopic imaging was used to confirm that the cup had been adequately seated and was well positioned. It was further stabilized with a single screw. Neutral poly liner was placed. The cup was tested and noted to be stable. Attention was then directed to the femur. The femur was gently hyperextended additional capsular release was performed as needed in order to allow adequate visualization of the proximal femur with elevation of the femur. Patient was placed in a hyperextended slightly adducted position with maximum external rotation. Box osteotome was used to check for any residual neck as well as sclerotic bone along the trochanter. [place] pepper was placed in the femur. Additional broaching was performed. Canal finder was used to determine the alignment of the canal and position. Size 1 broach was placed. The canal was then appropriately broached up to the templated size as long as there was adequate stability of the broach and serial advancement of the broach without excessive impingement. Specific attention was directed at avoiding varus attempting to direct the distal aspect of the broach more anteriorly and avoiding excessive anteversion. Trial reduction showed acceptable range of motio n, good stability, no posterior impingement, zoroastrianism of leg length and appropriate lateral shuck. I also hyperflexed the hip and checked that there was no impingement anteriorly and there was good stability with flexion, adduction and internal rotation. Marcaine and Exparel were injected. The stem was placed without difficulty. Repeat trial reduction and x-ray showed acceptable overall position, length, and no evidence of the femoral fracture. Final head was placed. Wound was meticulously irrigated with normal saline. The hip was reduced and additional Exparel and Marcaine were injected. The capsule was closed with interrupted nonabsorbable sutures. The fascia of the tensor was closed with interrupted and running Vicryl. No drain was placed. Any tensor fascia donaldo muscle that appeared to be contused or injured which was a minimal amount was carefully resected. Capsule around the tensor was injected with Exparel and Marcaine. The skin was closed with barbed stitches for the collazo bcutaneous tissue and skin. We also used surgical glue. The wound was dressed sterilely. Brief Betadine soak was also used and was meticulously irrigated with normal saline. Patient was transferred to recovery room in satisfactory condition. Complications: none Post-operative Condition: stable Disposition: Acute Care Plan for aftercare: The patient will be maintained on a standard total hip replacement protocol with weight bearing as tolerated and anterior hip precautions. The patient will receive Aspirin and sequential compression devices for DVT prophylaxis. The patient will be discharged home when safe for the home environment.
--- NOTE | 2022-11-17 13:55 | PM.PREOP ---
Pre-operative Note COVID-19 COVID-19 status: Negative Interval Note History & Physical reviewed/Exam performed by Physician: Yes Changes to H&P: No
[2022-11-17] MEDS: CEFAZOLIN 2 GM/100 ML PREMIX 100 ML IV ×2 (14:10→21:40)
[2022-11-17] MEDS: TRANEXAMIC ACID 1,000 MG VIAL 1000 MG INJ ×2 (14:20→16:23)
--- NOTE | 2022-11-17 14:51 | SUR.OPER ---
Patient supine on padded Patterson table, left arm on padded arm board at <90, right arm padded and secured with tape across patient's chest, both legs secured in padded traction boots and positioned per surgeon, padded post at patient's groin, pressure points checked and padded, pannus taped by surgeon, all positioning finalized by surgeon and PA
[2022-11-17] MEDS: LACTATED RINGERS 1,000 ML 42 ML IV (14:55)
[2022-11-17] MEDS: BUPIVACAINE LIPOSOME 266 MG/20 ML VIAL INJ (14:58)
[2022-11-17] MEDS: BUPIVACAINE 0.5% W/ EPI (PF) 30 ML VIAL INJ (14:59)
[2022-11-17] MEDS: OXYCODONE IR 5 MG TABLET PO ×2 (17:19→21:37)
[2022-11-17] MEDS: LACTATED RINGERS 1,000 ML 125 ML IV (20:12)
[2022-11-17] MEDS: ACETAMINOPHEN 325 MG TABLET 650 MG PO (20:12)
[2022-11-17] MEDS: IBUPROFEN 400 MG TABLET PO (20:13)
[2022-11-17] MEDS: DOCUSATE 100 MG CAPSULE PO (20:25)
[2022-11-17] MEDS: MIRTAZAPINE 15 MG TABLET PO (20:25)
[2022-11-17] MEDS: ASPIRIN EC 81 MG TABLET PO (20:26)
[2022-11-17] MEDS: ATORVASTATIN 20 MG TABLET 10 MG PO (20:26)
[2022-11-18] MEDS: OXYCODONE IR 5 MG TABLET PO ×2 (01:25→08:36)
[2022-11-18] MEDS: IBUPROFEN 400 MG TABLET PO ×4 (01:27→20:22)
[2022-11-18] MEDS: ACETAMINOPHEN 325 MG TABLET 650 MG PO ×4 (01:30→20:23)
[2022-11-18 02:54] VITALS: BP 108/62; PULSE 78; RESP 14; TEMP 37.1; O2SAT 92
[2022-11-18] MEDS: CEFAZOLIN 2 GM/100 ML PREMIX 100 ML IV (05:14)
[2022-11-18] MEDS: SODIUM CHLORIDE 0.9% FLUSH 10 ML IV ×3 (05:59→20:24)
[2022-11-18 06:29] LABS: Hemoglobin 14.4 g/dL (13.5-17.5)
[2022-11-18 08:00] VITALS: BP 112/74; PULSE 64; RESP 18; TEMP 36.9; O2SAT 93
--- NOTE | 2022-11-18 08:05 | CM.DANOTE ---
Addendum entered by JAD Pinto 11/19/22 14:17: ADD: therapy initially recommending SNF, spoke with patient and spouse about this option but ultimately patient improved enough today for return home. Patient and spouse very pleased. Plan: DC home w.spouse to assist to sister's house (one level) BRIANNA Original Note: Initial DCP Assessment Note Pt is a 67 yo male, resident of [place], now POD#1 from Rt hip surgery by Dr Giles PCP: Jose Bran Payer: NEY/Arvin Reviewed chart, pt has planned for DC home with family today, awaiting therapy recommendations No barriers identified from chart review to patient's safe discharge home w/family to assist; likely close outpatient f/u recommended. CM team will plan to follow closely today for continued assessment of DC needs and coordination of plan JAD Nicole Discharge Planning/Care Management CM Discharge Assessment Start: 11/18/22 08:02 Freq: Status: Active Protocol: Document 11/18/22 08:02 BRIANNA (Rec: 11/18/22 08:05 BRIANNA [id number]) Discharge Planning Assessment Assigned Emergency Management Director JAD Rosas DPOA/Assigned Designee Name Claudia () Contact Information [phone] Advance Directives? No Advance Directives on File No History Provided By Patient,Medical Record Prior Living Arrangements House Household Members spouse Type of transporation used prior to Drives own vehicle admit Independent with ADL's Yes: Poor activity tolerance r /t pain Is patient alert and oriented? Yes Barriers to Discharge No Comment None identified from chart review, awaiting therapy recommendations Discharge Plan Home Transportation Arrangement Family Referrals Initiated None needed Additional Comment Following closely in case any DC needs or concerns arise
[2022-11-18] MEDS: DOCUSATE 100 MG CAPSULE PO ×2 (08:37→20:23)
[2022-11-18] MEDS: ASPIRIN EC 81 MG TABLET PO ×2 (08:37→20:22)
[2022-11-18] MEDS: MULTIVITAMIN 1 TABLET 1 TAB PO (08:37)
--- NOTE | 2022-11-18 10:26 | P.DS_ITS ---
History of Present Illness History of Present Illness Date Patient Seen: 11/18/22 Time Patient Seen: 10:26 Chief complaint: Status post right total hip arthroplasty, anterior Narrative: Patient is awake sitting up in bed this morning. He states his pain has been w ell-controlled. His is at bedside and they state they have 20 stairs that the patient must climb in their home. Patient is looking forward to working with physical therapy. Discharge Providers Provider Discharge Date: 11/18/22 Primary care physician: Jose Bran MD Consults: 11/17/22 06:00 Consult to Anesthesiology Routine Comment: Consulting Provider: Anesthesiologist Reason for consultation: Regional block for post operative pain control 11/17/22 17:33 Consult to Discharge Planning Routine Comment: Consult to Physical Therapy Evaluate & Treat Comment: Physician Instructions: post op ANITA protocol Discharge provider: Sallie Nettles PA-C Summary Hospital Course Discharge Diagnosis: Status post right total hip arthroplasty, anterior Hospital Course: Operative Date/Time/Diagnoses Date of procedure: 11/17/22 Time of procedure: 14:00 Pre-op diagnosis: Severe right hip osteoarthritis Post-op diagnosis: same Procedure & Clinicians Procedure: Right total hip arthroplasty anterior approach Same procedure as scheduled: Yes Indications: The patient has had progressively worsening right hip pain with radiographic changes consistent with arthritis. Non-operative management has failed and the patient has requested total hip replacement. The risks, benefits and alternatives to surgery were discussed with the patient prior to proceeding. Risks discussed included, but were not limited to, failure to relieve pain, leg length discrepancy, dislocation, stiffness, infection, nerve damage, deep venous thrombosis, pulmonary embolism, stroke, coma, heart attack, permanent paralysis and , as well as the potential need for eventual revision of the prosthetic. Surgeon: Sadie Giles [employer] Supervisor: Timothy Banegas Anesthesia Type: General and Spinal Operative Notes Findings: Severe right hip osteoarthritis, adequate stability, good bone Closure Type: primary Specimen(s): none sent Prosthetic devices, grafts, tissues, transplants, or devices: [employer] 56 mm R3, size 7 standard offset anthology, 36- 3 Oxinium, neutral poly liner,one 6.5 mm screw Estimated Blood Loss (mL): 250 Blood products transfused: none Status at Discharge Cognitive/behavioral status at discharge: oriented Functional status at discharge: uses cane/walker Overall status at discharge: patient is progressing back to baseline Exam Vital Signs (past 8 hours): - 11/18/22 02:54 11/18/22 08:00 Temperature 98.8 F 98.5 F Pulse Rate 78 64 Respiratory Rate 14 18 Blood Pressure 108/62 112/74 Pulse Oximetry 92 93 Oxygen Flow Rate 0 0 Oxygen Delivery Method Room Air Oxygen Flow Rate 0 Narrative Exam Narrative: Awake, alert, and oriented. Intraoperative bandages clean, dry, and intact. Strength and sensation are intact to lower extremities bilaterally. Bilateral calves soft, compressible, nontender with no palpable cords or masses. Objective Labs 11/18/22 05:45 Labs: Laboratory Results - last 24 hr 11/17/22 11/18/22 12:19 05:45 Hgb 14.4 Hct 43.0 SARS-CoV-2 (PCR) Negative PFSH Medical History Cervical spondylosis with radiculopathy Depression DISH (diffuse idiopathic skeletal hyperostosis) Gout Hearing impaired HLD (hyperlipidemia) Osteoarthritis Rash (10/2022) Right shoulder pain Thoracic spondylosis with radiculopathy Surgical History History of nasal surgery Hx of arthroscopy of right knee Hx of colonoscopy Social History household members: spouse Smoking Status: Former smoker alcohol intake: current Discharge Assessment & Plan Assessment and Plan Assessment: Patient progressing as expected after right total hip arthroplasty, anterior approach. His pain is being well controlled. Plan of Treatment: Patient plans to discharge to home once safe and cleared by Physical therapy. He lives at home with his and has 20 stairs to climb in the home. Intraoperative Aquacel dressing to remain clean, dry, and intact until follow-up visit with Orthopedics in 2 weeks after surgery. Patient already prescribed narcotic medication at preoperative appointment for postoperative pain. Discharge Plan Discharge Plan Patient Disposition: Home Provider Discharge Comment: Discharge home when safe and cleared by Physical therapy Discharge orders & Medications Discharge Orders: Discharge (Order); Ordered 11/18/22 Ordered By: Sallie Nettles Prescriptions: Continued atorvastatin 10 mg tablet 10 mg PO BEDTIME Label Comments: Take one tablet by mouth once daily in the evening for cholesterol mirtazapine 15 mg Tablet 15 mg PO BEDTIME multivitamin Tablet 1 tab PO DAILY acetaminophen [Tylenol Extra Strength] 500 mg tablet 1,000 mg PO DAILY PRN (Reason: Pain) Follow up/Referrals: Jose Bran MD [Primary Care Provider] - Sadie Giles MD [Physician] - As previously scheduled (Follow up w/ Dr Giles on 11/30/2022 @ 2:00 pm at [facility] office in [place].) Diet/Activity/Treatments Diet: Diet as Tolerated Activity: Weight bearing as tolerated to right hip. Anterior hip precautions. Cold/Heat Therapy: Ice to hip as needed for pain. Skin/Wound/Dressing Care Dressing: May shower. Leave Aquacel dressing in place until follow up appt. No bathing or otherwise soaking incision. Call the office if the dressing becomes saturated inside. Visit Report/Discharge Packet Instructions: DI for Hip Replacement, DI for Constipation, How to Prevent Falls Stand Alone Forms: Patient Portal/API, Stroke Signs & Symptoms, Surgery Discharge Discharge Data Primary Care Provider: Jose Bran Attending Provider: Sadie Giles Quality VTE Deep Vein Thrombosis/Pulmonary Embolism Present on Admission: No
[2022-11-18 12:00] VITALS: BP 109/69; PULSE 65; RESP 20; TEMP 36.6; O2SAT 97
--- NOTE | 2022-11-18 12:46 | PT.IIE ---
Current Diagnoses Unilateral primary osteoarthritis, right hip (11/17/22) Surgery Performed Operation Date: 11/17/22 14:00 Actual Procedures p Total Hip Arthroplasty/Anterior Approach(Right) - Sadie Giles MD Surgical History (Last Reviewed 11/18/22 @ 10:30 by Sallie Nettles PA-C) History of nasal surgery Hx of arthroscopy of right knee Hx of colonoscopy Medical History (Last Reviewed 11/18/22 @ 10:30 by Sallie Nettles PA-C) Cervical spondylosis with radiculopathy Depression DISH (diffuse idiopathic skeletal hyperostosis) Gout Hearing impaired HLD (hyperlipidemia) Osteoarthritis Rash (10/2022) Right shoulder pain Thoracic spondylosis with radiculopathy Physical Therapy Inpatient Evaluation/Re-Eval M1 PT/OT-IP Prior Functional Status Start: 11/18/22 12:20 Freq: Status: Active Protocol: Document 11/18/22 12:20 BC (Rec: 11/18/22 12:46 BC [id number]) Medical Review Prior Functional Status Medical History Reviewed Yes Diet/Fluid Consistency Regular Mobility and Gait Independent Activities of Daily Living and IADL's Independent Prior Functional Level (Other details) Works in yard Social History Household Members spouse Living Arrangements House Number of Floors (Floors) Two Floors Number of Stairs To Enter/Railing? 20 steps to access second floor. Only bedroom available is upstairs. Home Environment Standard Height Toilet,Tub/ Shower Home Equipment Front Wheel Walker,Quad Cane Employment Status Retired M2 PT-IP Current Condition Start: 11/18/22 12:20 Freq: Status: Active Protocol: Document 11/18/22 12:20 BC (Rec: 11/18/22 12:46 [id number]) Physical Therapy Current Condition Current Condition Evaluation Date 11/18/22 Treatment Diagnosis R ANITA anterior approach; difficulty with ambulation Onset Date 11/17/22 M3 PT-IP Subjective Start: 11/18/22 12:20 Freq: Status: Active Protocol: Document 11/18/22 12:20 BC (Rec: 11/18/22 12:46 [id number]) Subjective Physical Therapy Visit Type Type Initial Evaluation Visit Start Time 10:50 Visit Stop Time 11:25 Total Visit Minutes 30 Physical Therapy Visit Comments Patient Comments Pt uncertain about his ability to discharge home Patient Goals To be safe with his recovery. Therapy Pain Assessment Pain When Pain Assessed During Mobility Pain Present Pain Present Pain Reported Location Right Hip Intensity 7 Scale Used Numeric (0 - 10) Pain Behaviors Facial Grimacing,Holding Area, Moaning Pain Management Techniques Re-positioning M4 PT-IP Mobility and Gait Start: 11/18/22 12:20 Freq: Status: Active Protocol: Document 11/18/22 12:20 BC (Rec: 11/18/22 12:46 [id number]) PT-Bed Mobility Assessment Supine to Sit Supine to Sit Minimal Assistance Scooting Scooting to Edge of Bed Contact Guard Assistance PT-Transfer Assessment Sit to and From Stand Sit to and from Stand Contact Guard Assistance Equipment Transfer Assistive Device Gait Belt,Front Wheeled Walker Transfers Transfer Destination Bed,Chair Transfer Technique Stand Step Pivot Transfer Ability Level of Assist Minimal Assistance Comments Mobility Comments Pt with reduced WB tolerance on RLE due to pain resulting in need of min A for transfers . Gait Assessment Gait Gait Assistance Required: Contact Guard Assist,Minimum Assistance Distance (Feet) 15 Assistive Devices Assistive Device Gait Belt,Front Wheeled Walker Gait Deviations General Gait Pattern Antalgic,Decreased Stride Length,Flexed Trunk,Step-to Gait Factors Limiting Gait Function Factors Limiting Gait Function Decreased Activity Tolerance, Decreased Strength,Limited Range of Motion,Pain,Poor Balance Comments Gait Comments Pt only ambulate 15' before needing to sit due to increasing pain. Was 3/10 at rest and increased to 7/10 with gait. He had a significantly antalgic gait with step to pattern and minimal tolerance to any WB through RLE. Stair Climbing Assessment Comments Stair Climbing Comments Unable to safely assess this AM PT-Balance Assessment Sitting Balance and Reactions Static Sitting Balance Ability Normal Dynamic Sitting Balance Ability Normal Standing Balance and Reactions Static Standing Balance Ability Fair Dynamic Standing Balance Ability Fair Device Used FWW M5 PT-IP Objective Assessments Start: 11/18/22 12:20 Freq: Status: Active Protocol: Document 11/18/22 12:20 BC (Rec: 11/18/22 12:46 [id number]) Orientation Orientation/Cognition Level of Alertness Alert Orientation Name,Date,Year,Situation Language Function Ability No Deficits Noted Safety Awareness Understands Safety Issues Comments [place] Gross Range of Motion Upper Extremity ROM Assessment Within Functional Limits Lower Extremity ROM Assessment Right Impaired Impairments anterior THPs limitations. Ankle WFL, knee WFL. Strength Upper Extremity Strength Assessment Within Functional Limits Lower Extremity Strength Assessment Right Impaired Hip demonstrated at least 3-/5 with functional mobilizations Knee 4/5 Ankle 4/5 Coordination Assessment Gross Coordination Gross Coordination WNL Sensation Assessment Sensation Sensation Description Hyperesthesia Comments Sensation Comments Pt reports hypersensation to touch on RUE thigh anteriolateral. Muscle Tone Muscle Tone WNL Yes M6 PT-IP Treatment Start: 11/18/22 12:20 Freq: Status: Active Protocol: Document 11/18/22 12:20 BC (Rec: 11/18/22 12:46 [id number]) Physical Therapy Treatment Education Education Provided Post-Op Packet,Safety Other Treatments Other Treatment Performed Educated on anterior hip precautions. DME providers for likely need of tub bench and raised toilet seat. Standing weight shifting laterally for pre-gait training. M7 PT-IP Assessment and Plan Start: 11/18/22 12:20 Freq: Status: Active Protocol: Document 11/18/22 12:20 BC (Rec: 11/18/22 12:46 [id number]) PT Summary Assessment and Plan Potential Rehabilitation Potential Excellent Status of Condition at Evaluation Evolving Summary Impairments Pain,ROM,Strength,Balance, Coordination,Sensation,Bed Mobility,Transfers,Gait, Activity Tolerance Progress Towards Goals Slow Progress due to Pain Assessment Summary Pt admitted s/p R anterior ANITA . He is WBAT. Pt and spouse present throughout. He reports his PLOF was fully independent and enjoys walking for exercise. He has a FWW in the room with him (adjusted to his height today but suspect even 1 level higher would be better). He has 20 steps to access the only bedroom and full bath in his home. Per Pt and , the steps are narrow with only a railing on L side with ascent. Pt states the steps are slippery. He and verbalize concern about discharging home today. Pt initially stating pain was 3/ 10 at rest but as we began to mobilize pain increased to 7/ 10. BP supine 107/76, sitting 124/80, and after gait 131/80. Pt was able to ambulate only 15' with pain as primary limitation. He could not bear weight on RLE for sufficient step through gait pattern. He requires min A at this time for just basic bedside mobility. He is not demonstrating a level of mobility for discharge home yet. I discussed with nsng that pain was a big limitation . She reports he has not been taking full dose of pain medication and she will assess this with him. BID session may improve discharge recommendations but for now he would need SNF placement given the level of his mobility and home set up concerns. Goals Bed Mobility Goal Independent Transfer Goal Standby Assistance Gait Goal Standby Assistance Gait Distance 100 Other Goals - Pt will ascend/descend 20 stairs (or near equivalent) with single railing and SBA. - Pt will be independent with HEP. Days to Meet Goals 4 Frequency of Treatment Frequency Of Treatment Twice a Day Treatment Plan Physical Therapy Treatment Plan Bed Mobility Training,Transfer Training,Gait Training, Therapeutic Exercise,Balance Retraining,Post Op Education, Discharge Planning, Neuromuscular Re-ed Precautions Anterior Hip Precautions No Hip Extension,No Hip External Rotation Weight Bearing Status Weight Bearing Status Weight Bear as Tolerated Recommendations To Nursing Amount of Assist Needed 1 Person Assist Discharge Recommendations PT Discharge Recommendations Home vs SNF Equipment Needed for Home Before Reviewed with Pt/ they may Discharge want to obtain tub bench and raised commode Transportation Needs at Discharge Private Vehicle,Wheelchair/ Cabulance
[2022-11-18] MEDS: OXYCODONE IR 10 MG TABLET PO ×2 (13:17→18:53)
--- NOTE | 2022-11-18 17:50 | PT.IPTN ---
Current Diagnoses Unilateral primary osteoarthritis, right hip (11/17/22) Surgery Performed Operation Date: 11/17/22 14:00 Actual Procedures p Total Hip Arthroplasty/Anterior Approach(Right) - Sadie Giles MD Physical Therapy Treatment Note M2 PT-IP Current Condition Start: 11/18/22 12:20 Freq: Status: Active Protocol: Document 11/18/22 12:20 BC (Rec: 11/18/22 12:46 BC [id number]) Physical Therapy Current Condition Current Condition Evaluation Date 11/18/22 Treatment Diagnosis R ANITA anterior approach; difficulty with ambulation Onset Date 11/17/22 M3 PT-IP Subjective Start: 11/18/22 12:20 Freq: Status: Active Protocol: Document 11/18/22 17:30 LJ (Rec: 11/18/22 17:50 LJ [id number]) Subjective Physical Therapy Visit Type Type Treatment Note Visit Start Time 15:28 Visit Stop Time 15:57 Total Visit Minutes 29 Physical Therapy Visit Comments Patient Comments Pt uncertain about his ability to discharge home Patient Goals To be safe with his recovery. Therapy Pain Assessment Pain When Pain Assessed During Mobility Pain Present Pain Present Pain Reported Location Right Hip Intensity 7 Scale Used Numeric (0 - 10) Pain Behaviors Facial Grimacing,Holding Area, Moaning Pain Management Techniques Re-positioning M4 PT-IP Mobility and Gait Start: 11/18/22 12:20 Freq: Status: Active Protocol: Document 11/18/22 17:30 LJ (Rec: 11/18/22 17:50 LJ [id number]) PT-Bed Mobility Assessment Supine to Sit Supine to Sit Minimal Assistance Sit to Supine Sit to Supine Moderate Assistance Scooting Scooting to Edge of Bed Contact Guard Assistance Scooting Up and Down in Bed Standby Assistance PT-Transfer Assessment Sit to and From Stand Sit to and from Stand Contact Guard Assistance Equipment Transfer Assistive Device Gait Belt,Front Wheeled Walker Transfers Transfer Destination Bed Transfer Technique ambulated Transfer Ability Level of Assist Contact Guard Assistance Comments Mobility Comments Pt remains in pain with ambulation and unable to tolerate full WB on RLE. Heavy use of UEs on FWW with limited gait. Pt requires assist with LEs lift into bed Gait Assessment Gait Gait Assistance Required: Contact Guard Assist Distance (Feet) 30 Assistive Devices Assistive Device Gait Belt,Front Wheeled Walker Gait Deviations General Gait Pattern Antalgic,Decreased Stride Length,Flexed Trunk,Step-to Gait Factors Limiting Gait Function Factors Limiting Gait Function Decreased Activity Tolerance, Decreased Strength,Limited Range of Motion,Pain,Poor Balance Comments Gait Comments Pt able to increase ambulation distance in room however very slow and heavy reliance on UEs. Unable to put full weight on RLE. Last 5 feet of ambulation pt required close CGA to Kevin for balance. Pain medication taken but still endorsing high pain level with mobility. Stair Climbing Assessment Comments Stair Climbing Comments Unable to safely assess in pm treatment session M5 PT-IP Objective Assessments Start: 11/18/22 12:20 Freq: Status: Active Protocol: Document 11/18/22 12:20 BC (Rec: 11/18/22 12:46 BC [id number]) Orientation Orientation/Cognition Level of Alertness Alert Orientation Name,Date,Year,Situation Language Function Ability No Deficits Noted Safety Awareness Understands Safety Issues Comments [place] Gross Range of Motion Upper Extremity ROM Assessment Within Functional Limits Lower Extremity ROM Assessment Right Impaired Impairments anterior THPs limitations. Ankle WFL, knee WFL. Strength Upper Extremity Strength Assessment Within Functional Limits Lower Extremity Strength Assessment Right Impaired Hip demonstrated at least 3-/5 with functional mobilizations Knee 4/5 Ankle 4/5 Coordination Assessment Gross Coordination Gross Coordination WNL Sensation Assessment Sensation Sensation Description Hyperesthesia Comments Sensation Comments Pt reports hypersensation to touch on RUE thigh anteriolateral. Muscle Tone Muscle Tone WNL Yes M6 PT-IP Treatment Start: 11/18/22 12:20 Freq: Status: Active Protocol: Document 11/18/22 17:30 LJ (Rec: 11/18/22 17:50 LJ [id number]) Physical Therapy Treatment Exercises Exercises Ankle Pumps,Gluteal Sets,Quad Sets,Heel Slides Education Education Provided Precautions,Weight Bearing Status,Safety Other Treatments Other Treatment Performed Educated on anterior hip precautions. DME providers for likely need of tub bench and raised toilet seat. Standing weight shifting laterally for pre-gait training. Bed exercises-AP, GS, QS indep; Heel slides small ROM assisted M7 PT-IP Assessment and Plan Start: 11/18/22 12:20 Freq: Status: Active Protocol: Document 11/18/22 17:30 LJ (Rec: 11/18/22 17:50 LJ [id number]) PT Summary Assessment and Plan Potential Rehabilitation Potential Excellent Status of Condition at Evaluation Evolving Summary Impairments Pain,ROM,Strength,Balance, Coordination,Sensation,Bed Mobility,Transfers,Gait, Activity Tolerance Progress Towards Goals Slow Progress due to Pain Assessment Summary Spouse present throughout treatment session. Pt able to increase ambulation distance but high pain level reported. He could not bear weight on RLE for sufficient step through gait pattern. He is not demonstrating a level of mobility for discharge home yet. Educated pt in maintaining pain medication schedule to control pain level to improve mobility. Pt is not safe to DC home yet as he has not been able to progress gait, trail stairs, or manage pain. At this time pt will require SNF to improve mobility, progress ambulation, and navigate stairs to return to level of function where it would be safe to return home with spouse assist. Goals Bed Mobility Goal Independent Transfer Goal Standby Assistance Gait Goal Standby Assistance Gait Distance 100 Other Goals - Pt will ascend/descend 20 stairs (or near equivalent) with single railing and SBA. - Pt will be independent with HEP. Days to Meet Goals 4 Frequency of Treatment Frequency Of Treatment Twice a Day Treatment Plan Physical Therapy Treatment Plan Bed Mobility Training,Transfer Training,Gait Training, Therapeutic Exercise,Balance Retraining,Post Op Education, Discharge Planning, Neuromuscular Re-ed Precautions Anterior Hip Precautions No Hip Extension,No Hip External Rotation Weight Bearing Status Weight Bearing Status Weight Bear as Tolerated Recommendations To Nursing Amount of Assist Needed 1 Person Assist Discharge Recommendations PT Discharge Recommendations SNF Rehab Equipment Needed for Home Before Reviewed with Pt/ they may Discharge want to obtain tub bench and raised commode Transportation Needs at Discharge Private Vehicle,Wheelchair/ Cabulance
[2022-11-18 18:16] VITALS: BP 123/69; PULSE 68; RESP 18; TEMP 37.1; O2SAT 91
[2022-11-18 19:47] VITALS: BP 109/72; PULSE 65; RESP 16; TEMP 36.6; O2SAT 96
[2022-11-18] MEDS: MIRTAZAPINE 15 MG TABLET PO (20:22)
[2022-11-18] MEDS: ATORVASTATIN 20 MG TABLET 10 MG PO (20:22)
[2022-11-19] MEDS: IBUPROFEN 400 MG TABLET PO ×3 (01:42→13:01)
[2022-11-19] MEDS: ONDANSETRON 4 MG/2 ML INJ IV (01:42)
[2022-11-19] MEDS: ACETAMINOPHEN 325 MG TABLET 650 MG PO ×3 (01:42→13:02)
[2022-11-19] MEDS: SODIUM CHLORIDE 0.9% FLUSH 10 ML IV (01:42)
[2022-11-19] MEDS: HYDROMORPHONE 2 MG TABLET PO ×3 (01:42→10:41)
[2022-11-19 01:45] VITALS: BP 105/68; PULSE 69; RESP 18; TEMP 36.5; O2SAT 95
[2022-11-19 05:12] VITALS: BP 104/64; PULSE 65; RESP 17; TEMP 36.4; O2SAT 93
[2022-11-19 08:31] VITALS: BP 109/70; PULSE 62; RESP 16; TEMP 36.6; O2SAT 95
[2022-11-19] MEDS: ONDANSETRON 4 MG ODT PO (08:38)
[2022-11-19] MEDS: MULTIVITAMIN 1 TABLET 1 TAB PO (08:39)
[2022-11-19] MEDS: polyethylene glycoL 3350 17 GM POWD.PACK PO (08:39)
[2022-11-19] MEDS: DOCUSATE 100 MG CAPSULE PO (08:40)
[2022-11-19] MEDS: ASPIRIN EC 81 MG TABLET PO (08:40)
[2022-11-19] MEDS: OXYCODONE IR 5 MG TABLET PO (08:40)
--- NOTE | 2022-11-19 10:21 | PT.IPTN ---
Current Diagnoses Unilateral primary osteoarthritis, right hip (11/17/22) Surgery Performed Operation Date: 11/17/22 14:00 Actual Procedures p Total Hip Arthroplasty/Anterior Approach(Right) - Sadie Giles MD Physical Therapy Treatment Note M2 PT-IP Current Condition Start: 11/18/22 12:20 Freq: Status: Active Protocol: Document 11/18/22 12:20 BC (Rec: 11/18/22 12:46 BC [id number]) Physical Therapy Current Condition Current Condition Evaluation Date 11/18/22 Treatment Diagnosis R ANITA anterior approach; difficulty with ambulation Onset Date 11/17/22 M3 PT-IP Subjective Start: 11/18/22 12:20 Freq: Status: Active Protocol: Document 11/19/22 10:21 AB (Rec: 11/19/22 13:19 AB [id number]) Subjective Physical Therapy Visit Type Type Treatment Note Visit Start Time 10:21 Visit Stop Time 10:47 Total Visit Minutes 26 Number of MENTAL HEALTH NURSE Visits 0 Physical Therapy Visit Comments Patient Comments pt is agreeable to do PT Therapy Pain Assessment Pain When Pain Assessed At Rest Pain Present Pain Present Pain Reported Location Right Hip Intensity 5 Scale Used 7/10 with mobility Pain Management Techniques Apply Cold,Distraction, Modification of Treatment,Re- positioning,Timing of Activity with Medications M4 PT-IP Mobility and Gait Start: 11/18/22 12:20 Freq: Status: Active Protocol: Document 11/19/22 10:21 AB (Rec: 11/19/22 13:19 AB [id number]) PT-Bed Mobility Assessment Supine to Sit Supine to Sit Minimal Assistance,1 Person Assistance,Head of Bed Elevated PT-Transfer Assessment Sit to and From Stand Sit to and from Stand Moderate Assistance,1 Person Assistance,Use of Upper Extremities Equipment Transfer Assistive Device Gait Belt,Front Wheeled Walker Orthotic/Prosthetic Devices or Brace: No Transfers Transfer Destination Chair Transfer Technique Stand Step Pivot Transfer Ability Level of Assist Maximum Assistance,1 Person Assistance,Use of Upper Extremities Comments Mobility Comments pt completed supine to sit min A and cues. increase time needed to complete task. c/o increase knee pain. completed sit to stand mod A and max cues and ambulated only ~ 2 ft max A using FWW and needing to sit down due to increase knee pain. pt sat back on EOB. pt presents with R knee slight buckling during ambulation and cues for quads activation. pt agreed to sit on the chair. positioned chair closer to pt. completed sit to stand mod A and step transfer to chair using FWW max a and max cues. positioned pt on the chair. call light and table placed within reach. Gait Assessment Gait Gait Assistance Required: Maximum Assistance Distance (Feet) 2 Able to Maintain Weight Bearing Status Yes During Gait Assistive Devices Assistive Device Gait Belt,Front Wheeled Walker Orthotic/Prosthetic Devices or Brace: No Gait Deviations General Gait Pattern Antalgic,Decreased Stride Length,Decreased Feet Clearance,Step-to Gait Factors Limiting Gait Function Factors Limiting Gait Function Decreased Activity Tolerance, Decreased Strength,Difficulty Following Directions,Limited Range of Motion,Pain,Poor Balance,Poor Safety Awareness M5 PT-IP Objective Assessments Start: 11/18/22 12:20 Freq: Status: Active Protocol: Document 11/18/22 12:20 BC (Rec: 11/18/22 12:46 BC [id number]) Orientation Orientation/Cognition Level of Alertness Alert Orientation Name,Date,Year,Situation Language Function Ability No Deficits Noted Safety Awareness Understands Safety Issues Comments [id number] Gross Range of Motion Upper Extremity ROM Assessment Within Functional Limits Lower Extremity ROM Assessment Right Impaired Impairments anterior THPs limitations. Ankle WFL, knee WFL. Strength Upper Extremity Strength Assessment Within Functional Limits Lower Extremity Strength Assessment Right Impaired Hip demonstrated at least 3-/5 with functional mobilizations Knee 4/5 Ankle 4/5 Coordination Assessment Gross Coordination Gross Coordination WNL Sensation Assessment Sensation Sensation Description Hyperesthesia Comments Sensation Comments Pt reports hypersensation to touch on RUE thigh anteriolateral. Muscle Tone Muscle Tone WNL Yes M6 PT-IP Treatment Start: 11/18/22 12:20 Freq: Status: Active Protocol: Document 11/19/22 10:21 AB (Rec: 11/19/22 13:19 AB [id number]) Physical Therapy Treatment Education Education Provided Safety M7 PT-IP Assessment and Plan Start: 11/18/22 12:20 Freq: Status: Active Protocol: Document 11/19/22 10:21 AB (Rec: 11/19/22 13:19 AB [id number]) PT Summary Assessment and Plan Potential Rehabilitation Potential Good Summary Impairments Pain,ROM,Strength,Balance, Coordination,Sensation,Bed Mobility,Transfers,Gait, Activity Tolerance Progress Towards Goals Slow Progress due to Pain,Slow Progress due to Activity Tolerance Assessment Summary pt requiring mod to max A with transfers using FWW and unable to tolerate much activity due to c/o increase hip pain and only ambulated ~ 2ft this morning. pt needs to be able to mobilize better and tolerate ambulation to be able to safety go home. Pt has 20 steps to get to his bedroom level and at this time is not safe to do any stair climbing. pt will require SNF rehab to improve overall strength and mobility. case manager specialist informed. Goals Bed Mobility Goal Independent Transfer Goal Standby Assistance,Front Wheeled Walker Gait Goal Standby Assistance Gait Distance 100 Other Goals - Pt will ascend/descend 20 stairs (or near equivalent) with L railing + SPC SBA. - Pt will be independent with HEP. Days to Meet Goals 10 Frequency of Treatment Frequency Of Treatment Twice a Day Treatment Plan Physical Therapy Treatment Plan Bed Mobility Training,Transfer Training,Gait Training, Therapeutic Exercise,Balance Retraining,Post Op Education, Discharge Planning,Hot or Cold Pack,Neuromuscular Re-ed, Coordination Retraining,Manual Therapy Precautions Anterior Hip Precautions No Hip Extension,No Hip External Rotation Weight Bearing Status Weight Bearing Status Weight Bear as Tolerated Allowed Weight Bearing Amount (enter % RLE WBAT or #) (%) Recommendations To Nursing Amount of Assist Needed 1 Person Assist Discharge Recommendations PT Discharge Recommendations SNF Rehab Transportation Needs at Discharge Wheelchair/Cabulance
--- NOTE | 2022-11-19 11:15 | P.PN_ITS ---
Subjective Subjective Date Patient Seen: 11/19/22 Time Patient Seen: 11:15 Interval history: Postop day 2 total hip arthroplasty. Stayed overnight as was evaluated by Physical therapy and felt to require jail placement. Had some initial issues with pain control. progressing towards better control now. Still has quite a bit of pain when he moves around. Does fine at rest. Exam Vital Signs (past 8 hours): - 11/19/22 05:12 11/19/22 08:31 Temperature 97.5 F L 97.9 F Pulse Rate 65 62 Respiratory Rate 17 16 Blood Pressure 104/64 109/70 Pulse Oximetry 93 95 Oxygen Flow Rate 0 0 Oxygen Delivery Method Room Air Oxygen Flow Rate 0 Narrative Exam Narrative: Alert oriented male in no acute distress. Spouse at bedside. Lying in bed. Dressing is clean dry and intact. Demonstrates dorsiflexion plantar flexion bilateral ankles. Heart rate regular rhythm. Lungs are clear. Objective Labs 11/18/22 05:45 PFSH Medical History Cervical spondylosis with radiculopathy Depression DISH (diffuse idiopathic skeletal hyperostosis) Gout Hearing impaired HLD (hyperlipidemia) Osteoarthritis Rash (10/2022) Right shoulder pain Thoracic spondylosis with radiculopathy Surgical History History of nasal surgery Hx of arthroscopy of right knee Hx of colonoscopy Social History household members: spouse Smoking Status: Former smoker alcohol intake: current Assessment & Plan Post-op Postoperative Procedures: Procedures Operation Date: 11/17/22 14:00 Actual Procedure Side Surgeon p Total Hip Arthroplasty/Anterior Approach Right Sadie Giles MD Postoperative day: 2 Postoperative status narrative: Better today. Initial marginal pain control little better now. Still pain with mobilization and difficulty mobilizing. Has 20 steps to go up at home which is a significant challenge. Will likely require jail placement initially until he can mobilize better. Discussed patient with rehabilitation caseworker. Postoperative plan narrative: Continue physical therapy, continue routine postoperative care. Await jail placement. Time Spent With Patient Time with patient: less than 15 minutes Quality VTE Deep Vein Thrombosis/Pulmonary Embolism Present on Admission: No
[2022-11-19] MEDS: OXYCODONE IR 10 MG TABLET PO (13:02)
--- NOTE | 2022-11-19 14:39 | PT.IPTN ---
Current Diagnoses Unilateral primary osteoarthritis, right hip (11/17/22) Surgery Performed Operation Date: 11/17/22 14:00 Actual Procedures p Total Hip Arthroplasty/Anterior Approach(Right) - Sadie Giles MD Physical Therapy Treatment Note M2 PT-IP Current Condition Start: 11/18/22 12:20 Freq: Status: Active Protocol: Document 11/18/22 12:20 BC (Rec: 11/18/22 12:46 BC [id number]) Physical Therapy Current Condition Current Condition Evaluation Date 11/18/22 Treatment Diagnosis R ANITA anterior approach; difficulty with ambulation Onset Date 11/17/22 M3 PT-IP Subjective Start: 11/18/22 12:20 Freq: Status: Active Protocol: Document 11/19/22 14:11 LJ (Rec: 11/19/22 14:38 LJ [id number]) Subjective Physical Therapy Visit Type Type Treatment Note Visit Start Time 13:31 Visit Stop Time 14:02 Total Visit Minutes 31 Number of CARETAKER GROUNDS Visits 1 Physical Therapy Visit Comments Patient Comments pt is agreeable to do PT. in room for CGT Patient Goals go home Therapy Pain Assessment Pain When Pain Assessed At Rest Pain Present Pain Present Pain Reported Location Right Hip Intensity 3 Scale Used 3/10 Pain Management Techniques Apply Cold,Distraction, Modification of Treatment,Re- positioning,Timing of Activity with Medications M4 PT-IP Mobility and Gait Start: 11/18/22 12:20 Freq: Status: Active Protocol: Document 11/19/22 14:11 LJ (Rec: 11/19/22 14:38 LJ [id number]) PT-Transfer Assessment Sit to and From Stand Sit to and from Stand Contact Guard Assistance,1 Person Assistance,Use of Upper Extremities Equipment Transfer Assistive Device Gait Belt,Front Wheeled Walker Orthotic/Prosthetic Devices or Brace: No Transfers Transfer Destination Chair,Toilet Transfer Technique ambulated Transfer Ability Level of Assist Contact Guard Assistance,Use of Upper Extremities Comments Mobility Comments Pt sitting in chair upon arrival. States pain is much less today and he would like to get up and walk. Pts participating in CGT states she is nervous about him going to a SNF. Would prefer to DC to sister's home which does not have any stairs and is more appropriate for his limited mobility. Pt transfered from chair to standing CGA. Pt wanted to assess whether or not he would be able to sit>stand from toilet. Ambulated with assisting ~10' and sat on down using grab bars to complete sit<>stand. Pt had no difficulty. Pt then ambulated in hallway and back to room CGA and cues for normalizing gait. Pt returned to sitting in chair. Left wih in room. Gait Assessment Gait Gait Assistance Required: Contact Guard Assist Distance (Feet) 150 Able to Maintain Weight Bearing Status Yes During Gait Assistive Devices Assistive Device Gait Belt,Front Wheeled Walker Orthotic/Prosthetic Devices or Brace: No Gait Deviations General Gait Pattern Antalgic,Decreased Stride Length,Decreased Feet Clearance,Step-to Gait Factors Limiting Gait Function Factors Limiting Gait Function Decreased Activity Tolerance, Decreased Sensation,Decreased Strength,Limited Range of Motion,Pain,Poor Balance Comments Gait Comments Pt much improved with ambulation this afrternoon. Able to ambulate to stairs and back with CGA assist. Cues given from therapist for increasing WB on RLE and working toward normalizing gait pattern. Stair Climbing Assessment Evaluation Level of Assist On Stairs Contact Guard Assistance Devices Stair Climbing Assistive Devices Left Railing,Right Railing Technique/Endurance Stair Climbing Direction Ascend and Descend Stair Climbing Technique Step to Step Number of Steps Climbed 3 Stair Climbing Set # Repetitions (reps) 1 Comments Stair Climbing Comments Pt able to complete stairs with cues for leading with stronger LE ascending and involved LE descending. M5 PT-IP Objective Assessments Start: 11/18/22 12:20 Freq: Status: Active Protocol: Document 11/18/22 12:20 BC (Rec: 11/18/22 12:46 BC [id number]) Orientation Orientation/Cognition Level of Alertness Alert Orientation Name,Date,Year,Situation Language Function Ability No Deficits Noted Safety Awareness Understands Safety Issues Comments [place] Gross Range of Motion Upper Extremity ROM Assessment Within Functional Limits Lower Extremity ROM Assessment Right Impaired Impairments anterior THPs limitations. Ankle WFL, knee WFL. Strength Upper Extremity Strength Assessment Within Functional Limits Lower Extremity Strength Assessment Right Impaired Hip demonstrated at least 3-/5 with functional mobilizations Knee 4/5 Ankle 4/5 Coordination Assessment Gross Coordination Gross Coordination WNL Sensation Assessment Sensation Sensation Description Hyperesthesia Comments Sensation Comments Pt reports hypersensation to touch on RUE thigh anteriolateral. Muscle Tone Muscle Tone WNL Yes M6 PT-IP Treatment Start: 11/18/22 12:20 Freq: Status: Active Protocol: Document 11/19/22 14:38 JESSY (Rec: 11/19/22 14:39 LJ [id number]) Physical Therapy Treatment Exercises Exercises Ankle Pumps,Gluteal Sets,Quad Sets Education Education Provided Safety M7 PT-IP Assessment and Plan Start: 11/18/22 12:20 Freq: Status: Active Protocol: Document 11/19/22 14:11 JESSY (Rec: 11/19/22 14:38 JESSY [id number]) PT Summary Assessment and Plan Potential Rehabilitation Potential Good Summary Impairments Pain,ROM,Strength,Balance, Coordination,Sensation,Bed Mobility,Transfers,Gait, Activity Tolerance Progress Towards Goals Goals Met Assessment Summary Pt improved with mobility and ambulation. Reports that he is able to DC to and stay at his [id number]'s house for a while. There are no stairs to enter and it is a single level home with taller toilet and walk in shower. completed CGT with pt and is more confident about his ability to be safe at [facility] [place]. Pt has met goals and is safe for DC. Goals Bed Mobility Goal Independent Transfer Goal Standby Assistance,Front Wheeled Walker Gait Goal Standby Assistance Gait Distance 100 Days to Meet Goals 10 Frequency of Treatment Frequency Of Treatment Twice a Day Treatment Plan Physical Therapy Treatment Plan Bed Mobility Training,Transfer Training,Gait Training, Therapeutic Exercise,Balance Retraining,Post Op Education, Discharge Planning,Hot or Cold Pack,Neuromuscular Re-ed, Coordination Retraining,Manual Therapy
== END 2022-11-19 14:56 | disposition home or self-care (01) ==
LOC: OR 19:41 → AC 19:41
PROVIDERS: Admitting Provider Orthopaedic Surgery; PCP Internal Medicine; Referring Provider Orthopaedic Surgery; Visit Provider Orthopaedic Surgery
PROC: (CPT 27130; principal; 2022-11-17 14:00)
DX: M16.11 Unilateral primary osteoarthritis, right hip (principal); Z20.822 Contact with and (suspected) exposure to COVID-19
CPT/HCPCS: 27130; 36415; 73502; 76000; 85014; 85018; 87635; 97110; 97116; 97161; 97530; C1776; C9803; G0378; C9290; J0690; J1100; J2250; J2405; J2704; J3010

== ENCOUNTER → 2023-05-01 13:32 | Outpatient (CLI) | payer MEDICARE, OTHER, SELFPAY ==
[2022-11-17 17:34] VITALS: BMI 33.2
--- NOTE | 2023-05-01 | DI.MRI.S_ITS ---
PROCEDURE: MR SHOULDER RT WO CON INDICATIONS: RIGHT SHOULDER PAIN TECHNIQUE: Noncontrast oblique coronal T2 fast spin echo with fat saturation, oblique sagittal T1 spin echo and T2 fast spin echo with fat saturation, axial T1 spin echo and T2 fast spin echo with fat saturation through the shoulder. COMPARISON: None. FINDINGS: Image quality: Excellent. Rotator cuff: Low-grade bursal surface partial thickness tear involving distal supraspinatus at its insertion on the humeral head extending to musculotendinous junction. Distal infraspinatus and subscapularis tendinosis is seen. No full-thickness rotator cuff tendon rupture. Sagittal images demonstrate very mild supraspinatus muscle atrophy. Bones and bursae: No bone marrow contusions or fractures. Moderate acromioclavicular joint osteoarthritic changes are seen with joint space narrowing and downward osteophyte formation depressing the musculotendinous junction of supraspinatus. Small amount of subacromial subdeltoid bursal fluid is seen, no gross loose bodies. Capsule and soft tissues: Subtle signal abnormality and contour irregularity involving superior anterior labrum at 1-2 o'clock position is seen suggestive of subtle superior anterior labral tear. The long head of the biceps tendon demonstrates normal location and morphology. The rotator interval appears normal, without fibrosis. The coracohumeral ligament is normal in thickness. IMPRESSION: 1. Low-grade bursal surface partial thickness tear involving distal supraspinatus near musculotendinous junction. Distal infraspinatus and subscapularis tendinosis. No full-thickness rotator cuff tendon rupture. Very mild supraspinatus muscle atrophy. 2. Moderate acromioclavicular joint osteoarthritis. No fracture or dislocation. Small amount of subacromial subdeltoid bursal fluid. 3. Suggestion of superior anterior labral tear at 1 to 2 o'clock position. Dictated by: Adilson Larose M.D. on 05/01/2023 at 21:58 Approved by: Adilson Larose M.D. on 05/01/2023 at 22:09
== END ==
PROVIDERS: PCP Internal Medicine; Referring Provider Orthopaedic Surgery; Visit Provider Orthopaedic Surgery
DX: M75.111 Incomplete rotator cuff tear or rupture of right shoulder, not specified as traumatic (principal); M19.011 Primary osteoarthritis, right shoulder
CPT/HCPCS: 73221

== ENCOUNTER → 2023-12-27 14:13 | Outpatient (CLI) | payer MEDICARE, OTHER, SELFPAY ==
[2022-11-17 17:34] VITALS: BMI 33.2
[2023-12-27 15:08] LABS: Influenza A - CEPHEID Flu A NEGATIVE (NEGATIVE); Influenza B - CEPHEID Flu B NEGATIVE (NEGATIVE); Respiratory Syncytial Virus Negative (Negative)
[2023-12-27 15:16] LABS: COVID-19 CEPHEID 4-PLEX PCR Negative (Negative)
== END ==
PROVIDERS: PCP Internal Medicine; Visit Provider Physician Assistant Medical
DX: R05.1 Acute cough (principal)
CPT/HCPCS: 0241U

== ENCOUNTER 2025-04-25 05:23 | Emergency (ER) | payer MEDICARE, OTHER, SELFPAY ==
[2022-11-17 17:34] VITALS: BMI 33.2
[2025-04-25] VITALS (8 sets, daily range): BP systolic 97–141; BP diastolic 64–77; PULSE 49–59; RESP 14–17; TEMP 36.8; O2SAT 96–98; BMI 31.8
--- NOTE | 2025-04-25 05:33 | ED.ABDPAIN ---
HPI - Abdominal Pain <Destin Harrington DO - Last Filed: 04/25/25 06:20> General Chief Complaint: Abdominal Pain Stated Complaint: rt side abd pain Time Seen by Provider: 04/25/25 05:32 History of Present Illness HPI narrative: Patient with a past medical history of hyperlipidemia essential tremors comes into the ED from home for evaluation of right lower quadrant abdominal pain, states it has been ongoing persistent for the past few days, states that movement does make it worse, states that last night he had laid on his right side felt like it was worse therefore decided come into the ED for further evaluation treatment. Patient denies any other symptoms at this time. Related Data Home Medications ?Medication ?Instructions ?Recorded ?Confirmed acetaminophen 500 mg tablet 1,000 mg PO DAILY PRN Pain 08/02/19 05/10/24 (Tylenol Extra Strength) multivitamin 1 tab PO DAILY 08/02/19 05/10/24 atorvastatin 10 mg tablet 10 mg PO BEDTIME 01/10/22 05/10/24 mirtazapine 15 mg tablet 15 mg PO BEDTIME 11/09/22 05/10/24 allopurinol 300 mg tablet 300 mg PO DAILY 05/10/24 05/10/24 lorazepam 0.5 mg tablet mg PO 05/10/24 05/10/24 primidone 50 mg tablet 100 mg PO BID 05/10/24 05/10/24 Previous Rx's ?Medication ?Instructions ?Recorded aspirin 81 mg tablet,delayed 81 mg PO BID #60 tabs 11/19/22 release cyclobenzaprine 10 mg tablet 10 mg PO TID #30 tabs 05/10/24 Allergies Allergy/AdvReac Type Severity Reaction Status Date / Time No Known Drug Allergies Allergy Verified 04/25/25 05:41 Review of Systems <Destin Harrington DO - Last Filed: 04/25/25 06:20> Review of Systems Narrative: General: Denies fever, chills, weight loss HEENT: Denies headache, eye drainage, eye irritation, head trauma, sore throat, voice change Cardiovascular: Denies any chest pain, palpitations, tachycardia Respiratory: Denies any shortness of breath, cough, wheeze, stridor GI/: Prior to the positive right lower quadrant abdominal pain, denies nausea, vomiting, diarrhea, bright red blood per rectum, melanotic stools, urinary frequency, urinary retention, dysuria, hematuria MSK: Denies any joint pain, muscle pains, swelling Skin: Denies any rashes, lesions, discoloration Neuro: Denies any headache, lightheadedness, dizziness, fainting, weakness Psych: Denies SI/HI Patient History <Destin Harrington - Last Filed: 04/25/25 06:20> Medical History Cervical spondylosis with radiculopathy Depression DISH (diffuse idiopathic skeletal hyperostosis) Gout Hearing impaired HLD (hyperlipidemia) Osteoarthritis Rash (10/2022) Right shoulder pain Thoracic spondylosis with radiculopathy Surgical History History of nasal surgery Hx of arthroscopy of right knee Hx of colonoscopy Social History household members: spouse Smoking Status: Never smoker alcohol intake: current alcohol intake frequency: a few times a week Exam <Destin Harrington, - Last Filed: 04/25/25 06:20> Narrative Exam Narrative: General: Cooperative, well-developed, not in acute distress HEENT: Normocephalic, atraumatic, PERRLA, normal sclera, eyelids normal Neck: Active full range of motion, atraumatic Chest: Normal to inspection, negative crepitus, no overlying erythema ecchymosis Respiratory: Normal respiratory effort, not in acute respiratory distress, clear to auscultation bilaterally negative cough, wheeze, tachypnea, rhonchi, rales Cardiology: Regular rate rhythm negative gallop, murmur, rubs GI/: Minor reproducible tenderness to palpation of the right lower quadrant abdomen, soft, non rigid, normal to inspection, exam deferred MSK: Full active range of motion in all 4 extremities, atraumatic, no tenderness to palpation of any bony prominences Skin: No rashes or lesions noted Neuro: Alert awake oriented x3, moves all 4 extremities spontaneously, cranial nerves intact, able to answer all questions appropriately follows commands appropriately Psych: Cooperative, negative suicidal or homicidal ideations Initial Vital Signs Initial Vital Signs: Vital Signs Pulse Rate 59 L 04/25/25 05:32 Blood Pressure 141/77 H 04/25/25 05:32 Pulse Oximetry 97 04/25/25 05:32 <Junior Umana MD - Last Filed: 04/25/25 07:30> Initial Vital Signs Initial Vital Signs: Vital Signs Pulse Rate 59 L 04/25/25 05:32 Blood Pressure 141/77 H 04/25/25 05:32 Pulse Oximetry 97 04/25/25 05:32 Course <Destin Harrington DO - Last Filed: 04/25/25 06:20> Orders Ordered: ED Orders 04/25/25 05:34 CT abdomen pelvis w con Stat 04/25/25 05:38 Complete Blood Count AUTO DIFF Stat Comprehensive Metabolic Panel Stat Lipase Stat MAG [Magnesium] Stat Discontinued Medications Sodium Chloride (Normal Saline 0.9%) 1,000 mls @ 1,000 mls/hr IV BOLUS ONE Stop: 04/25/25 06:32 Last Infusion: 04/25/25 06:39 Dose: Infused Documented By: Admin: 04/25/25 05:38 Dose: 1,000 mls/hr Documented By: KANDICE Ketorolac Tromethamine (Ketorolac 30 Mg/Ml Vial) 30 mg IV NOW ONE Stop: 04/25/25 05:34 Last Admin: 04/25/25 05:39 Dose: 30 mg Documented By: KANDICE Vital Signs Vital signs: Vital Signs - 8 hr 04/25/25 05:32 04/25/25 05:32 04/25/25 05:41 Temperature 98.3 F Pulse Rate 59 L 57 L Respiratory Rate 17 Blood Pressure 141/77 H 141/71 H Pulse Oximetry 97 97 Oxygen Delivery Method Room Air 04/25/25 06:00 04/25/25 06:00 Temperature Pulse Rate 49 L Respiratory Rate 14 Blood Pressure 119/70 Pulse Oximetry 96 Oxygen Delivery Method Room Air <Junior Umana MD - Last Filed: 04/25/25 07:30> Orders Ordered: ED Orders 04/25/25 05:34 CT abdomen pelvis w con Stat 04/25/25 05:38 Complete Blood Count AUTO DIFF Stat Comprehensive Metabolic Panel Stat Lipase Stat MAG [Magnesium] Stat Discontinued Medications Sodium Chloride (Normal Saline 0.9%) 1,000 mls @ 1,000 mls/hr IV BOLUS ONE Stop: 04/25/25 06:32 Last Infusion: 04/25/25 06:39 Dose: Infused Documented By: Admin: 04/25/25 05:38 Dose: 1,000 mls/hr Documented By: LM Ketorolac Tromethamine (Ketorolac 30 Mg/Ml Vial) 30 mg IV NOW ONE Stop: 04/25/25 05:34 Last Admin: 04/25/25 05:39 Dose: 30 mg Documented By: LM Vital Signs Vital signs: Vital Signs - 8 hr 04/25/25 05:32 04/25/25 05:32 04/25/25 05:41 Temperature 98.3 F Pulse Rate 59 L 57 L Respiratory Rate 17 Blood Pressure 141/77 H 141/71 H Pulse Oximetry 97 97 Oxygen Delivery Method Room Air 04/25/25 06:00 04/25/25 06:00 Temperature Pulse Rate 49 L Respiratory Rate 14 Blood Pressure 119/70 Pulse Oximetry 96 Oxygen Delivery Method Room Air MDM - Abdominal Pain <Destin Harrington DO - Last Filed: 04/25/25 06:20> Differential Diagnosis Differential diagnosis: Likely abdominal pain, acute appendicitis, constipation, diverticulitis, gastroenteritis, pancreatitis and other (Urinary tract infection, electrolyte abnormality) Lab Data 04/25/25 05:38 04/25/25 05:38 Labs: Lab Results 04/25/25 Range/Units 05:38 WBC 4.9 (4.5-11.0) X10^3/uL RBC 5.01 (4.5-5.9) X10^6/uL Hgb 15.5 (13.5-17.5) g/dL Hct 45.1 (41-53) % MCV 89.9 (80-100) fL MCH 31.0 (26-34) PG MCHC 34.5 (30-36) % RDW 13.0 (11.6-14.8) % Plt Count 134 L (150-400) X10^3/uL Neut % (Auto) 52.2 (50-75) % Lymph % (Auto) 33.7 (25-40) % [place] % (Auto) 11.5 (3-14) % Eos % (Auto) 1.8 L (2-4) % Baso % (Auto) 0.8 (0-2) % Neut # (Auto) 2600 (1688-6911) /uL Lymph # (Auto) 1600 (2258-0473) /uL [place] # (Auto) 600 (0-900) /uL Eos # (Auto) 100 (0-450) /uL Baso # (Auto) 0 (0-100) /uL Sodium 139 (137-145) mmol/L Potassium 4.4 (3.4-5.1) mmol/L Chloride 107 (98-107) mmol/L Carbon Dioxide 25 (22-32) mmol/L BUN 24 H (9-20) mg/dL Creatinine 0.94 (0.66-1.25) mg/dL Estimated GFR > 60 (>60) mL/min BUN/Creatinine Ratio 25.5 H (6-22) Glucose 109 H (70-99) mg/dL Calcium 9.1 (8.4-10.2) mg/dL Magnesium 2.2 (1.6-2.3) mg/dL Total Bilirubin 0.8 (0.2-1.3) mg/dL AST 24 (17-59) IU/L ALT 23 (<50) IU/L Alkaline Phosphatase 52 (38-126) U/L Total Protein 7.4 (6.3-8.2) g/dL Albumin 4.6 (3.5-5.0) g/dL Globulin 2.8 (1.7-4.1) g/dL Albumin/Globulin Ratio 1.6 (1.0-2.8) Lipase 34 (23-300) U/L Point of care testing: Urine Dip Bedside Urine Glucose Negative Bedside Urine Bilirubin - Negative Bedside Urine Ketone - Negative Urine Specific [place] 1.030 Bedside Urine Occult Blood - Negative Bedside Urine pH 6.0 Bedside Urine Protein - Negative Bedside Urine Urobilinogen - Negative Bedside Urine Nitrite - Negative Bedside Urine Leukocytes - Negative Esterase MDM Narrative Medical decision making narrative: 70-year-old male with a past medical history of hyperlipidemia essential tremors, comes into the ED from home for evaluation of right lower quadrant abdominal pain ongoing persistent for the past few days, states that movement/pressure does make it worse, nothing making it better. He denies any other symptoms such as headache visual disturbances chest pain shortness of breath fever chills nausea vomiting or any other GI/ symptoms at this time. On exam patient with minor reproducible tenderness palpation of the right lower quadrant but non peritoneal nature. Patient had lab work imaging urinalysis performed here in the emergency department. Lab work not consistent with a leukocytosis, Chem panel unremarkable, creatinine GFR normal, urinalysis not consistent with acute urinary tract infection. 0615: Patient re-evaluated stating pain to his right lower quadrant is completely resolved after administration of Toradol. Informed him of need for CT scan he understands and agrees with the plan. 0700: Patient was signed out to Dr. Umana, final disposition pending CT scan re-evaluation <Junior Umana MD - Last Filed: 04/25/25 07:30> Lab Data Labs: Lab Results 04/25/25 Range/Units 05:38 WBC 4.9 (4.5-11.0) X10^3/uL RBC 5.01 (4.5-5.9) X10^6/uL Hgb 15.5 (13.5-17.5) g/dL Hct 45.1 (41-53) % MCV 89.9 (80-100) fL MCH 31.0 (26-34) PG MCHC 34.5 (30-36) % RDW 13.0 (11.6-14.8) % Plt Count 134 L (150-400) X10^3/uL Neut % (Auto) 52.2 (50-75) % Lymph % (Auto) 33.7 (25-40) % [place] % (Auto) 11.5 (3-14) % Eos % (Auto) 1.8 L (2-4) % Baso % (Auto) 0.8 (0-2) % Neut # (Auto) 2600 (2423-8607) /uL Lymph # (Auto) 1600 (2516-2945) /uL [place] # (Auto) 600 (0-900) /uL Eos # (Auto) 100 (0-450) /uL Baso # (Auto) 0 (0-100) /uL Sodium 139 (137-145) mmol/L Potassium 4.4 (3.4-5.1) mmol/L Chloride 107 (98-107) mmol/L Carbon Dioxide 25 (22-32) mmol/L BUN 24 H (9-20) mg/dL Creatinine 0.94 (0.66-1.25) mg/dL Estimated GFR > 60 (>60) mL/min BUN/Creatinine Ratio 25.5 H (6-22) Glucose 109 H (70-99) mg/dL Calcium 9.1 (8.4-10.2) mg/dL Magnesium 2.2 (1.6-2.3) mg/dL Total Bilirubin 0.8 (0.2-1.3) mg/dL AST 24 (17-59) IU/L ALT 23 (<50) IU/L Alkaline Phosphatase 52 (38-126) U/L Total Protein 7.4 (6.3-8.2) g/dL Albumin 4.6 (3.5-5.0) g/dL Globulin 2.8 (1.7-4.1) g/dL Albumin/Globulin Ratio 1.6 (1.0-2.8) Lipase 34 (23-300) U/L Point of care testing: Urine Dip Bedside Urine Glucose Negative Bedside Urine Bilirubin - Negative Bedside Urine Ketone - Negative Urine Specific [place] 1.030 Bedside Urine Occult Blood - Negative Bedside Urine pH 6.0 Bedside Urine Protein - Negative Bedside Urine Urobilinogen - Negative Bedside Urine Nitrite - Negative Bedside Urine Leukocytes - Negative Esterase MDM Narrative Medical decision making narrative: 70-year-old male with a past medical history of hyperlipidemia essential tremors, comes into the ED from home for evaluation of right lower quadrant abdominal pain ongoing persistent for the past few days, states that movement/pressure does make it worse, nothing making it better. He denies any other symptoms such as headache visual disturbances chest pain shortness of breath fever chills nausea vomiting or any other GI/ symptoms at this time. On exam patient with minor reproducible tenderness palpation of the right lower quadrant but non peritoneal nature. Patient had lab work imaging urinalysis performed here in the emergency department. Lab work not consistent with a leukocytosis, Chem panel unremarkable, creatinine GFR normal, urinalysis not consistent with acute urinary tract infection. 0615: Patient re-evaluated stating pain to his right lower quadrant is completely resolved after administration of Toradol. Informed him of need for CT scan he understands and agrees with the plan. 0700: Patient was signed out to Dr. Umana, final disposition pending CT scan re-evaluation CHRISTEL: I assumed care of this patient at 7:00 a.m. today. At that point his laboratory evaluation was complete and the results of his abdominal pelvic CT scan where the only thing pending. Shortly after I assumed his care the results came back and showed that he had some hepatic steatosis but otherwise there was no acute findings on the CT. His pain was well controlled in the ER and he was discharged home in stable condition. Advised to return for changing or worsening abdominal pain, fevers, intractable nausea or vomiting or diarrhea or any other change or worsening in his condition. Patient was in agreement with this plan. Discharge Plan Departure Patient Disposition: Home Clinical Impression: Abdominal pain Qualifiers: Abdominal location: right lower quadrant Qualified Code(s): R10.31 - Right lower quadrant pain Instructions: DI for Abdominal Pain-Adult Prescriptions: No Action primidone 50 mg tablet 100 mg PO BID lorazepam 0.5 mg tablet PO allopurinol 300 mg tablet 300 mg PO DAILY cyclobenzaprine 10 mg tablet 10 mg PO TID Qty: 30 0RF atorvastatin 10 mg tablet 10 mg PO BEDTIME Patient Comments: Take one tablet by mouth once daily in the evening for cholesterol mirtazapine 15 mg Tablet 15 mg PO BEDTIME aspirin 81 mg Tablet,Delayed Release (Dr/Ec) 81 mg PO BID Qty: 60 0RF multivitamin Tablet 1 tab PO DAILY acetaminophen [Tylenol Extra Strength] 500 mg tablet 1,000 mg PO DAILY PRN (Reason: Pain) Referrals: Jose Bran MD [Primary Care Provider, Internal Medicine] - As soon as possible Stand Alone Forms: Patient Portal/API
--- NOTE | 2025-04-25 05:34 | DI.CT.S_ITS ---
PROCEDURE: CT ABDOMEN PELVIS W CON INDICATIONS: RLQ abd pain TECHNIQUE: After the administration of intravenous contrast, axial sections acquired from the lung bases to the pubic symphysis. Coronal and sagittal reformats were performed. For radiation dose reduction, the following was used: automated exposure control, adjustment of mA and/or kV according to patient size. COMPARISON: [facility], CT, CT ABDOMEN PELVIS W CON, 11/28/2021, 17:33. FINDINGS: Image quality: Diagnostic. Lower Chest: Bibasilar dependent atelectasis is seen. Heart size is normal, no pericardial effusion. Small hiatal hernia. ABDOMEN: Liver: No solid mass. Moderate hepatic steatosis is seen. Gallbladder: No radiopaque gallstones or wall thickening. Biliary ducts: No biliary dilation. Pancreas: No ductal dilation. Spleen: Size is within normal limits. Adrenal Glands: No adrenal nodules. Thickening of the left adrenal gland. Kidneys and Ureters: No hydronephrosis. Simple appearing bilateral renal cysts are seen. No solid mass. No complex renal cystic lesion which requires follow up. Stomach and Bowel: Normal colonic caliber, without significant wall thickening. Appendix is visualized and is within normal limits. Mild colonic diverticulosis without CT evidence of acute diverticulitis. No abscess collection. Peritoneum: No abnormal intraperitoneal fluid. No free air. Ventral Wall: No significant ventral hernia. Abdominal Nodes: No retroperitoneal or mesenteric adenopathy by size criteria. Vessels: Aorta and inferior vena cava are normal in size. PELVIS: Pelvic Organs: Unremarkable. Bladder: No bladder wall thickening, accounting for underdistention. Pelvic Nodes: No enlarged lymph nodes. Miscellaneous: No inguinal hernias are seen. Bones: No aggressive osseous abnormality. Patient is status post right total hip arthroplasty. No acute vertebral body compression fractures. IMPRESSION: 1. No bowel obstruction or abnormal bowel wall thickening. Normal appendix. Colonic diverticulosis without CT evidence of acute diverticulitis. No free fluid or free air. 2. No obstructing renal stones or hydronephrosis. Simple appearing bilateral renal cysts. 3. Moderate hepatic steatosis. No discrete hepatic lesion. No discrepancies from preliminary reading. Dictated by: Adilson Larose M.D. on 04/25/2025 at 7:56 Approved by: Adilson Larose M.D. on 04/25/2025 at 7:59
[2025-04-25] MEDS: SODIUM CHLORIDE 0.9% 1,000 ML 1000 ML IV (05:38)
[2025-04-25] MEDS: KETOROLAC 30 MG/ML VIAL IV (05:39)
[2025-04-25 05:49] LABS: Add Manual Diff / Slide Review NO; Hematocrit 45.1 % (41-53); Hemoglobin 15.5 g/dL (13.5-17.5); Lymphocytes Absolute Auto 1600 /uL (1100-4500); Mean Corpuscular HGB Conc 34.5 % (30-36); Mean Corpuscular Hemoglobin 31.0 PG (26-34); Mean Corpuscular Volume 89.9 fL (80-100); Platelet Count 134 X10^3/uL (150-400)
[2025-04-25 06:01] LABS: Alanine Aminotransferase 23 IU/L (<50); Albumin 4.6 g/dL (3.5-5.0); Albumin Globulin Ratio 1.6 (1.0-2.8); Alkaline Phosphatase 52 U/L (38-126); Blood Urea Nitrogen 24 mg/dL (9-20); Calcium 9.1 mg/dL (8.4-10.2); Carbon Dioxide 25 mmol/L (22-32); Chloride 107 mmol/L (98-107); Estimated Glomerular Filt Rate > 60 mL/min (>60); Globulin 2.8 g/dL (1.7-4.1); Glucose 109 mg/dL (70-99); HEMOLYSIS < 15 (0-50); Lipase 34 U/L (23-300); Magnesium 2.2 mg/dL (1.6-2.3); Potassium 4.4 mmol/L (3.4-5.1); Sodium 139 mmol/L (137-145); Total Protein 7.4 g/dL (6.3-8.2)
--- NOTE | 2025-04-25 06:29 | PC.NURSE ---
Pt to imaging via ED stretcher with lead technologist in cytogenetics
== END 2025-04-25 08:07 | disposition home or self-care (01) ==
PROVIDERS: Student in an Organized Health Care Education/Training Program; Emergency Provider Emergency Medicine; Family Provider Internal Medicine; PCP Internal Medicine
DX: R10.31 Right lower quadrant pain (principal)
CPT/HCPCS: 36415; 74177; 80053; 81003; 83690; 83735; 85025; 96361; 96374; 99284; J1885; Q9967

== ENCOUNTER 2025-08-05 14:15 | Emergency (ER) | payer MEDICARE, OTHER, SELFPAY ==
[2022-11-17 17:34] VITALS: BMI 33.2
[2025-08-05] VITALS (11 sets, daily range): BP systolic 121–161; BP diastolic 76–100; PULSE 57–68; RESP 17–18; TEMP 36.9; O2SAT 93–98; BMI 32.5
--- NOTE | 2025-08-05 14:24 | DI.RAD.S_ITS ---
PROCEDURE: XR ANKLE RT MIN 3V INDICATIONS: fall, 5-6 feet, pain TECHNIQUE: 3 views of the ankle were acquired. COMPARISON: 12/28/2022. FINDINGS: Bones: No acute fractures or dislocations. Productive bony changes noted at the distal fibular tip. Ankle mortise is normally aligned. No suspicious bony lesions. Soft tissues: No tibiotalar joint effusion. Achilles tendon appears normal. Mild soft tissue swelling. IMPRESSION: No acute bony abnormality or significant effusion. Mild soft tissue swelling. Dictated by: Zaira Guadarrama M.D. on 08/05/2025 at 15:18 Approved by: Zaira Guadarrama M.D. on 08/05/2025 at 15:20
--- NOTE | 2025-08-05 14:24 | DI.RAD.S_ITS ---
PROCEDURE: XR HIP W PEL IF DONE RT 2V INDICATIONS: fall, 5-6 feet, pain TECHNIQUE: AP pelvis and lateral view of the hip acquired. COMPARISON: [facility], CR, XR HIP W PEL IF DONE RT 2V, 11/17/2022, 17:00. [facility], CR, XR HIP W PEL IF DONE RT 2V, 11/17/2022, 16:36. FINDINGS: Bones: Patient is status post right hip arthroplasty, with hardware components in expected positions. The hip joint appears congruent. Small left hip osteophytes are noted. Bilateral SI joint sclerosis. Lower lumbar spine degenerative disease noted. The visualized bony structures appear intact. Soft tissues: Overlying postoperative changes are noted. No suspicious soft tissue densities. IMPRESSION: Normal alignment of the right hip arthroplasty. Expected post-operative appearance of a hip arthroplasty. No acute fracture. Dictated by: Zaira Guadarrama M.D. on 08/05/2025 at 15:16 Approved by: Zaira Guadarrama M.D. on 08/05/2025 at 15:18
--- NOTE | 2025-08-05 15:02 | ED.FALL ---
HPI - Fall General Chief Complaint: Fall Stated Complaint: Fell off ladder, right hip/back pain Time Seen by Provider: 08/05/25 15:01 Source: patient and family Mode of arrival: Ambulatory Limitations: no limitations History of Present Illness HPI Narrative: 20-year-old male history of dyslipidemia, no anticoagulants. Patient presents after fall from ladder. Patient's feet were proximally 5 ft off the ground states he leaned forward in the ladder went backwards. He fell somewhat onto his right side and buttocks. States he landed on his hip buttock region 1st and then fell backwards. Patient states has pain in the right hip but was able to stand and weightbear. He notes some pain in his right ankle but states that is somewhat milder he can weightbear on that and move his ankle without much issue. Notes increased pain when he tries to stand and lean forward. He also notes low back pain particularly in the middle and right lower side. Patient states he did not hit his head. He states no midline neck or thoracic pain. No chest pain or shortness of breath. No numbness tingling or weakness. No loss of bowel or bladder control. No nausea or vomiting. He denies any loss of consciousness. Patient states he does not take any anticoagulants. He states statin this is only daily medication. States he had a hip replacement 3 years ago in the rate. Denies any drug allergies. No tobacco, occasional alcohol, none today, no recreational drugs. Related Data Home Medications ?Medication ?Instructions ?Recorded ?Confirmed acetaminophen 500 mg tablet 1,000 mg PO DAILY PRN Pain 08/02/19 05/10/24 (Tylenol Extra Strength) multivitamin 1 tab PO DAILY 08/02/19 05/10/24 atorvastatin 10 mg tablet 10 mg PO BEDTIME 01/10/22 05/10/24 mirtazapine 15 mg tablet 15 mg PO BEDTIME 11/09/22 05/10/24 allopurinol 300 mg tablet 300 mg PO DAILY 05/10/24 05/10/24 lorazepam 0.5 mg tablet mg PO 05/10/24 05/10/24 primidone 50 mg tablet 100 mg PO BID 05/10/24 05/10/24 Previous Rx's ?Medication ?Instructions ?Recorded aspirin 81 mg tablet,delayed 81 mg PO BID #60 tabs 11/19/22 release cyclobenzaprine 10 mg tablet 10 mg PO TID #30 tabs 05/10/24 oxycodone 5 mg tablet 5 mg PO Q6H PRN pain #14 tabs 08/05/25 Allergies Allergy/AdvReac Type Severity Reaction Status Date / Time No Known Drug Allergies Allergy Verified 08/05/25 14:17 Review of Systems Review of Systems ROS Unobtainable: All systems reviewed & are unremarkable except as noted in HPI and below Patient History Medical History Depression Rash (10/2022) Gout Right shoulder pain Osteoarthritis Hearing impaired HLD (hyperlipidemia) DISH (diffuse idiopathic skeletal hyperostosis) Cervical spondylosis with radiculopathy Thoracic spondylosis with radiculopathy Surgical History Hx of colonoscopy Hx of arthroscopy of right knee History of nasal surgery Social History household members: spouse alcohol intake: current alcohol intake frequency: a few times a week Exam Narrative Exam Narrative: GEN: Patient appears in mild distress. Patient is seated in a wheelchair he states this is much more comfortable than being on in the ED gurney. HEAD: No evidence of trauma, no raccoon/Eason sign. NECK: Nontender, painless range of motion, trachea midline Negative Nexus criteria, no midline line tenderness, distracting injury, altered mental status, neuro deficit, recent EtOH. EYES: PERRLA, EOMI ENT: External inspection normal, trachea is midline, TM's are normal no hemotypanum, Nares are clear, no septal hematoma, no dental or oral injury, airway is normal and with normal occlusion, No bony tenderness RESP: Chest is nontender and has symmetric movement, no ecchymosis, breath sounds are normal no crackles, wheezes or rales CVS: Heart sounds are normal, no murmur noted, No JVD. ABG/GI: Nontender, soft, normal bowel sounds, no distention, no organomegaly, pelvic rock is negative NEURO: Oriented AOx3, neuro is grossly intact, sensation and motor is normal all 4 extremities moving, cranial nerves II through XII are intact, GCS is negative PSYCH: Normal mood and affect SKIN: Intact, warm and dry, no crepitus and without decubitus BACK: No CVA tenderness, no vertebral tenderness, no step-off's, no crepitus EXT: Atraumatic, hips are nontender bilaterally, right knee and ankle are nontender. Full range of motion., no pedal edema, normal color and temperature, normal range of motion of extremities with normal tendon exam, 2+ pulses in all four extremities Initial Vital Signs Initial Vital Signs: Vital Signs Temperature 98.4 F 08/05/25 14:17 Pulse Rate 68 08/05/25 14:17 Respiratory Rate 17 08/05/25 14:17 Blood Pressure 161/89 H 08/05/25 14:17 Pulse Oximetry 98 08/05/25 14:17 Oxygen Delivery Method Room Air 08/05/25 14:17 Course Orders Ordered: ED Orders 08/05/25 15:10 CT lumbar spine wo con Stat 08/05/25 15:11 CT pelvis wo con Stat Discontinued Medications Morphine Sulfate (Morphine 4 Mg/Ml Inj) 4 mg IV NOW ONE Stop: 08/05/25 15:11 Last Admin: 08/05/25 15:43 Dose: 4 mg Documented By: AAYUSH Ondansetron HCl (Ondansetron 4 Mg/2 Ml Inj) 4 mg IV Q6HR PRN PRN Reason: Nausea And Vomiting Vital Signs Vital signs: Vital Signs - 8 hr 08/05/25 16:00 08/05/25 16:30 08/05/25 16:52 Pulse Rate 63 67 59 L Respiratory Rate Blood Pressure Pulse Oximetry 96 93 96 Oxygen Delivery Method 08/05/25 16:52 08/05/25 17:00 08/05/25 17:01 Pulse Rate 57 L 57 L Respiratory Rate 18 Blood Pressure 160/100 H Pulse Oximetry 94 95 Oxygen Delivery Method Room Air 08/05/25 17:01 Pulse Rate Respiratory Rate Blood Pressure 121/76 Pulse Oximetry Oxygen Delivery Method MDM - Fall MDM Narrative Medical decision making narrative: L-spine CT, no acute traumatic injury identified. Pelvis CT no acute fracture normal alignment right hip arthroplasty with the expected postoperative changes. Right hip x-ray normal alignment right hip arthroplasty expect some postoperative parents of right hip arthroplasty. No acute fracture. Right ankle x-ray, no acute bony abnormality or significant effusion mild soft tissue swelling. Patient had pain medications. Patient has stood and walked with a weight-bearing here in the department. Discussed return precautions, signs and symptoms to watch for all questions answered. Discharge Plan Departure Patient Disposition: Home Clinical Impression: Fall from ladder, Low back pain, Contusion of hip, right Instructions: DI for Low Back Pain Activity Restrictions/Additional Instructions: Follow up for recheck if your symptoms are persisting for the next week. You can take acetaminophen up to a 1000 mg every 6 hours as needed for pain. If inadequate for pain you can take 1-2 tablets of oxycodone every 6 hours as needed. This medication can make you sleepy do not drive, perform hazardous activities or make any major decisions while taking it. This medication will make you constipated please take a stool softener once to twice daily until stools are soft and regular. Prescription sent to [facility] in [place]. Please return for any severe headaches, new neck or back pain, any loss of bowel or bladder control, new numbness tingling or weakness of your extremities, persistent vomiting, new chest pain or shortness of breath or other new or concerning changes. Prescriptions: New oxycodone 5 mg tablet 5 mg PO Q6H PRN (Reason: pain) Qty: 14 0RF No Action primidone 50 mg tablet 100 mg PO BID lorazepam 0.5 mg tablet PO allopurinol 300 mg tablet 300 mg PO DAILY cyclobenzaprine 10 mg tablet 10 mg PO TID Qty: 30 0RF atorvastatin 10 mg tablet 10 mg PO BEDTIME Patient Comments: Take one tablet by mouth once daily in the evening for cholesterol mirtazapine 15 mg Tablet 15 mg PO BEDTIME aspirin 81 mg Tablet,Delayed Release (Dr/Ec) 81 mg PO BID Qty: 60 0RF multivitamin Tablet 1 tab PO DAILY acetaminophen [Tylenol Extra Strength] 500 mg tablet 1,000 mg PO DAILY PRN (Reason: Pain) Referrals: Jose Bran MD [Primary Care Provider, Internal Medicine] Stand Alone Forms: Patient Portal/API
--- NOTE | 2025-08-05 15:10 | DI.CT.S_ITS ---
PROCEDURE: CT LUMBAR SPINE WO CON INDICATIONS: FALL FROM LADDER TECHNIQUE: Noncontrast 3 mm thick sections acquired from the T12 level to the sacrum. Sagittal and coronal reformats were constructed. For radiation dose reduction, the following was used: automated exposure control. COMPARISON: None. FINDINGS: Image quality: Excellent. Bones: There is normal bony alignment. No acute vertebral body compression fractures. No suspicious lytic or blastic bony lesions. No pars defects. Degenerative changes with osteophytosis and facet arthropathy. Decreased osseous mineralization. Soft tissues: No retroperitoneal masses or hematomas. Visualized aorta is normal in caliber. Atherosclerotic vascular calcifications. IMPRESSION: No acute traumatic injury is identified. Dictated by: Sameer Conde M.D. on 08/05/2025 at 15:34 Approved by: Sameer Conde M.D. on 08/05/2025 at 15:36
--- NOTE | 2025-08-05 15:11 | DI.CT.S_ITS ---
PROCEDURE: CT PEL WO CON INDICATIONS: fall, back/hip pain TECHNIQUE: Noncontrast 3 mm axial sections acquired through the bony pelvis, with coronal and sagittal reformatting. COMPARISON: [facility], CR, XR HIP W PEL RT 2V, 08/05/2025, 14:29. [facility], CT, CT LUMBAR SPINE WO CON, 08/05/2025, 15:18. FINDINGS: Image quality: Excellent. Bones: No acute fracture. Normal alignment of the right hip arthroplasty. No evidence of Sarah prosthesis fracture or loosening of the hardware. Normal alignment of the pubic symphysis, bilateral SI and left hip joints. Mild left hip joint space narrowing and osteophytes. Soft tissues: No significant soft tissue maternal. Colonic diverticulosis. Normal appendix. No inflammation. Atheromatous plaques are present in the nonaneurysmal abdominal aorta. Mild prostate and seminal vesicle gland enlargement. Fat containing left inguinal hernia. IMPRESSION: No acute fracture. Normal alignment of the right hip arthroplasty with expected postoperative changes. Dictated by: Zaira Guadarrama M.D. on 08/05/2025 at 16:00 Approved by: Zaira Guadarrama M.D. on 08/05/2025 at 16:05
[2025-08-05] MEDS: MORPHINE 4 MG/ML INJ IV (15:43)
== END 2025-08-05 17:37 | disposition home or self-care (01) ==
PROVIDERS: Emergency Provider Emergency Medicine; Family Provider Internal Medicine; PCP Internal Medicine
DX: S70.01XA Contusion of right hip, initial encounter (principal); M54.50 Low back pain, unspecified; W11.XXXA Fall on and from ladder, initial encounter
CPT/HCPCS: 36415; 72131; 72192; 73502; 73610; 96374; 99284; J2272